=== PATIENT | female | born 1950 | race Caucasian/White ===

== ENCOUNTER → 2019-03-30 08:21 | Outpatient (CLI) | payer MEDICARE, OTHER, SELFPAY ==
--- NOTE | 2019-03-30 | DI.MRI.S_ITS ---
PROCEDURE: MR BRAIN (IAC) WWO CON INDICATIONS: Unspecified sensorineural hearing loss TECHNIQUE: Noncontrast sagittal T1 spin echo, axial FLAIR, axial gradient echo, axial diffusion and ADC through the brain. Axial thin-slice 3D CISS, coronal TruFISP, axial T1 spin echo with fat saturation through the internal auditory canals. After the administration of contrast, thin slice axial and coronal T1 spin echo with fat saturation through the internal auditory canals, and axial T1 spin echo with fat saturation through the brain. COMPARISON: None. FINDINGS: Image quality: Excellent. Cerebellopontine angles: No cerebellopontine angle masses. Inner ear structures appear normally formed. No suspicious enhancement in the internal auditory canal or along the course of the 7th cranial nerve. CSF spaces: Ventricles are normal in size and shape. No extra-axial fluid collections. Basal cisterns are patent. Brain: No intracranial bleeds or mass effects. Flynn-white matter interface is intact. No abnormal intracranial enhancement. Age-appropriate brain parenchymal volume loss and chronic small vessel ischemic change can be seen. Diffusion weighted images demonstrate no acute ischemic insults. Brainstem appears normal. Normal intravascular flow voids are present. Skull and face: Calvarial marrow signal is normal. Orbits appear normal. Sinuses: Sinuses and mastoids are clear. IMPRESSION: No significant abnormality is seen. Specifically, no masses or abnormal enhancement are seen within the cerebellopontine angle cisterns or within the internal auditory canals. Dictated by: Ramses Bailey M.D. on 03/30/2019 at 8:39 Approved by: Ramses Bailey M.D. on 03/30/2019 at 8:40
== END ==
PROVIDERS: Family Provider Family Medicine; PCP Family Medicine; Visit Provider Otolaryngology
DX: H90.5 Unspecified sensorineural hearing loss (principal)
CPT/HCPCS: 70553

== ENCOUNTER → 2020-01-01 11:36 | Outpatient (CLI) | payer MEDICARE, OTHER, SELFPAY ==
--- NOTE | 2020-01-01 | DI.CT.S_ITS ---
PROCEDURE: CT HEAD/BRAIN WO CON INDICATIONS: Unspecified injury of head, initial encounter TECHNIQUE: Noncontrast 4.5 mm thick angled axial sections acquired from the foramen magnum to the vertex, with coronal and sagittal reformats. For radiation dose reduction, the following was used: automated exposure control, adjustment of mA and/or kV according to patient size. COMPARISON: None. FINDINGS: Image quality: Excellent. CSF spaces: Basal cisterns are patent. No extra-axial fluid collections. The ventricles are symmetric in size and shape. Brain: No intracranial bleeds or masses. There is cerebral volume loss for age, with resultant ventricular and sulcal prominence. There are periventricular and deep white matter chronic small vessel ischemic changes. There is intracranial internal carotid artery atherosclerosis. Skull and face: Calvarium and visualized facial bones appear intact, without suspicious lesions. 3 mm soft tissue density projecting at the anterior right frontal scalp projecting at the anterior right frontal scalp on image 22 series 2 is indeterminate recommend direct visual inspection and clinical correlation to exclude early malignant process. This finding is nonspecific. Opacification of posterior ethmoid air cell on the right. IMPRESSION: No acute intracranial process. 3 mm soft tissue nodular density involving the anterior right frontal scalp as above. Recommend direct visual inspection and clinical correlation. Dictated by: Rikki Malloy M.D. on 01/01/2020 at 12:37 Approved by: Rikki Malloy M.D. on 01/01/2020 at 12:41
== END ==
PROVIDERS: Family Provider Family Medicine; PCP Internal Medicine; Referring Provider Internal Medicine; Visit Provider Internal Medicine
DX: S09.90XA Unspecified injury of head, initial encounter (principal); R22.0 Localized swelling, mass and lump, head; I65.29 Occlusion and stenosis of unspecified carotid artery; X58.XXXA Exposure to other specified factors, initial encounter
CPT/HCPCS: 70450

== ENCOUNTER → 2020-01-29 10:11 | Outpatient (CLI) | payer MEDICARE, OTHER, SELFPAY ==
--- NOTE | 2020-01-29 | DI.RAD.S_ITS ---
PROCEDURE: XR CHEST 2V INDICATIONS: CHRONIC COUGH TECHNIQUE: 2 views of the chest were acquired. COMPARISON: [facility], CT, CT ANGIO CHEST PE, 12/29/2017, 23:01. [facility], CR, XR CHEST 1 VIEW, 12/29/2017, 18:23. FINDINGS: Surgical changes and devices: None. Lungs and pleura: Diffuse interstitial prominence predominantly in the bilateral lower lung zones. Subtle patchy opacity adjacent to the left cardiac apex. No focal consolidation. No pleural effusions or pneumothorax. Mediastinum: Mediastinal contours are normal. Heart size is normal. Bones and chest wall: No suspicious bony abnormalities. Soft tissues appear unremarkable. IMPRESSION: Diffuse interstitial prominence most pronounced in the lower lung zones. Subtle patchy opacity of the left lung base adjacent to the cardiac apex. Findings are favored to represent atelectasis. An inflammatory/infectious process not excluded if clinically appropriate. No focal consolidations seen. Dictated by: Sanchez Meier M.D. on 01/29/2020 at 13:58 Approved by: Sanchez Meier M.D. on 01/29/2020 at 14:01
== END ==
PROVIDERS: Family Provider Family Medicine; PCP Internal Medicine; Referring Provider Internal Medicine; Visit Provider Internal Medicine
DX: R05 Cough (principal)
CPT/HCPCS: 71046

== ENCOUNTER → 2020-01-31 10:15 | Outpatient (CLI) | payer MEDICARE, OTHER, SELFPAY ==
[2020-01-31 11:54] LABS: BUN Creatinine Ratio 24.5 (6-22); Blood Urea Nitrogen 13 mg/dL (7-17); Estimated Glomerular Filt Rate > 60.0 mL/min (>60)
== END ==
PROVIDERS: Family Provider Family Medicine; PCP Internal Medicine; Referring Provider Internal Medicine; Visit Provider Internal Medicine
DX: Z79.899 Other long term (current) drug therapy (principal)
CPT/HCPCS: 36415; 82565; 84520

== ENCOUNTER → 2020-02-01 10:03 | Outpatient (CLI) | payer MEDICARE, OTHER, SELFPAY ==
--- NOTE | 2020-02-01 | DI.CT.S_ITS ---
PROCEDURE: CT ANGIO CHEST PE PROTOCOL INDICATIONS: COUGH TECHNIQUE: After the administration of intravenous contrast, 2 mm thick sections acquired from the pulmonary apices to the posterior costophrenic angles. 3-dimensional maximum intensity projection (MIP) coronal and sagittal reformats were then acquired through the thorax. For radiation dose reduction, the following was used: automated exposure control, adjustment of mA and/or kV according to patient size. COMPARISON: [facility], CR, XR CHEST 2V, 01/29/2020, 10:09. FINDINGS: Image quality: Excellent. Pulmonary arteries: Pulmonary arteries are normal in size, and demonstrate no intraluminal filling defects to suggest central pulmonary embolism. Lungs and pleura: Subtle ground-glass opacities at both lung bases, mainly in a dependent fashion. There is also a minor ground-glass density dependently along the left major fissure. No dense or focal consolidations. No pleural effusions or pneumothorax. Central and peripheral airways are patent. Mediastinum: Heart size is enlarged, particularly the ventricles, without pericardial effusion. No mediastinal or hilar adenopathy. Thoracic aorta is normal in caliber and enhancement. Esophagus is normal in caliber, without hiatal hernia. Bones and chest wall: No suspicious bony lesions. Ribs and thoracic spine appear intact throughout. Thyroid gland is normal . No axillary or supraclavicular adenopathy. Abdomen: Visualized upper abdominal solid organs appear normal in the early arterial phase of enhancement. IMPRESSION: 1. Mild dependent ground-glass changes bilaterally are nonspecific. There dependent nature suggests mild pulmonary edema, less likely infection or inflammation. 2. Biventricular cardiomegaly. Dictated by: Michelle Cantor M.D. on 02/01/2020 at 10:45 Approved by: Michelle Cantor M.D. on 02/01/2020 at 10:52
== END ==
PROVIDERS: Family Provider Family Medicine; PCP Internal Medicine; Referring Provider Internal Medicine; Visit Provider Internal Medicine
DX: R05 Cough (principal); I51.7 Cardiomegaly
CPT/HCPCS: 71275; Q9967

== ENCOUNTER 2020-02-11 08:44 | Emergency (ER) | payer MEDICARE, OTHER, SELFPAY ==
[2020-02-11] VITALS (9 sets, daily range): BP systolic 134–175; BP diastolic 64–99; PULSE 58–89; RESP 17; TEMP 37; O2SAT 97–99
--- NOTE | 2020-02-11 08:46 | ED_ITS ---
HPI - Headache General Chief Complaint: Headache Stated Complaint: Severe head pain for 5 days, head injury in August Time Seen by Provider: 02/11/20 08:46 Source: patient and family Mode of arrival: Ambulatory Limitations: no limitations History of Present Illness HPI Narrative: 69-year-old female nonsmoker with history of pulmonary edema presents with her and a chief complaint of severe left temporal pain for the past 5 days. She states her pain has been persistent and denies much in the way of provocation or palliation. She denies any radiation of her discomfort. She has had squiggly lines in her vision off and on for quite some time. She denies any specific history of headaches but has been having discomfort off and on since a left-sided head injury in August. She reports having had a CT scan as an outpatient at least a month ago with no significant findings. Apparently her PCP had discussed with her the potential of ocular migraines. She denies any neck pain or fever, chills, nausea or vomiting. Furthermore, she states that she has had a dry cough for quite some time and during her evaluation with her PCP she was found to have pulmonary edema and was recently started on Lasix. S he is scheduled to have an echocardiogram tomorrow. Complaint: headache Onset (ago): day(s) Onset description: gradual Location: left Severity: severe Quality: aching and throbbing Relieving factors: nothing Exacerbating factors: none Associated symptoms: photophobia and sensitivity to sound Other symptoms: cough Treatments prior to arrival: acetaminophen and ibuprofen Related Data Previous Rx's Medication Instructions Recorded estradiol 1 gram VAG 2XW #42.5 gram 01/10/20 ketorolac 10 mg PO TID #15 tab 02/11/20 prednisone 10 mg PO DAILY #30 tab 02/11/20 Allergies Allergy/AdvReac Type Severity Reaction Status Date / Time Sulfonamide Allergy Unknown Uncoded 02/11/20 09:03 Review of Systems Constitutional Constitutional: Denies chills, Denies fatigue, Denies fever(s), Denies frequent falls, Reports headache(s), Denies lethargy and Denies weakness Eyes Eyes: Reports change in vision, Denies eye discharge, Denies irritation and Denies loss of vision ENT Ears, Nose, Mouth, and Throat: Denies change in voice, Denies dizziness, Reports headache(s), Denies neck pain, Denies sore throat and Denies throat swelling Cardiovascular Cardiovascular: Denies chest pain, Denies irregular heart rhythm, Denies lightheadedness, Denies palpitations, Denies dyspnea, Denies dyspnea on exertion and Denies orthopnea Respiratory Respiratory: Reports cough, Denies dyspnea, Denies dyspnea on exertion and Denies wheezing Gastrointestinal Gastrointestinal: Denies abdominal pain, Denies change in bowel habits, Denies diarrhea, Denies nausea and Denies vomiting Musculoskeletal Musculoskeletal: Denies neck pain and Denies numbness Integumentary/Breasts Skin/Breast: Denies pruritus, Denies erythema, Denies rash and Denies wounds Neurologic Neurologic: Denies behavioral changes, Denies confusion, Denies dizziness, Denies frequent falls, Reports headache(s), Denies loss of vision, Denies numbness and Denies weakness Psychiatric Psychiatric: Denies anxiety, Denies behavioral changes, Denies confusion, Denies depression, Denies homicidal ideation and Denies suicidal ideation Endocrine Endocrine: Denies fatigue, Denies flushing and Denies palpitations Hematologic/Lymphatic Hematologic/Lymphatic: Denies easy bruising Allergic/Immunologic Allergic/Immunologic: Denies urticaria, Denies throat swelling and Denies wheezing Patient History Social History Smoking Status: Never smoker Smoking Status: Never smoker alcohol intake frequency: 0-2 drinks per day Substance Use Type: does not use Exam Narrative Exam Narrative: GENERAL: [69] year old patient appears stated age. Well- nourished, well-developed patient, in mild distress. HEAD: Atraumatic. Normocephalic. Significant tenderness to light palpation of left roman catholic, no obviously palpable temporal artery EYES: Pupils equal round and reactive. Extraocular motions intact. No scleral icterus. No injection or drainage. No hyphema ENT: Nose without bleeding, purulent drainage. Throat without erythema, tonsillar hypertrophy or exudate. Airway patent. NECK: Trachea midline. Non tender CARDIOVASCULAR: Regular rate and rhythm without murmurs, gallops, or rubs. RESPIRATORY: Clear to auscultation. Breath sounds equal bilaterally. No wheezes, rales, or rhonchi. GASTROINTESTINAL: Abdomen soft, non-tender, nondistended. EXTREMITIES: No edema or joint tenderness. BACK: Nontender without deformity or crepitance. No flank tenderness. NEURO: AOx3. SKIN: No rash or erythema of visible areas Initial Vital Signs Initial Vital Signs: Vital Signs Temperature 98.6 F 02/11/20 08:57 Pulse Rate 89 02/11/20 08:57 Respiratory Rate 17 02/11/20 08:57 Blood Pressure 175/99 H 02/11/20 08:57 Pulse Oximetry 99 02/11/20 08:57 Course Course Course Narrative: Patient experiences significant but not complete improvement of headache symptoms. She still does have some tenderness to palpation of the left roman catholic. Giant cell arteritis considered but with lack of inflammatory markers being elevated this is unlikely. Migraine equivalent considered most harlan rodriguez given presentation, response to therapy. Head CT unremarkable. Patient given return precautions and had questions answered to her apparent satisfaction. Orders Ordered: ED Orders 02/11/20 09:15 CT head/brain wo con Stat 02/11/20 09:46 Basic Metabolic Panel Stat C-Reactive Protein Quant Stat Complete Blood Count AUTO DIFF Stat D Dimer Stat Erythrocyte Sedimentation Rate Stat NT-proBNP (BNP-Adult 18+) Stat Procalcitonin Stat Troponin & CK Cardiac Panel Stat Discontinued Medications Dexamethasone (Decadron) 10 mg IV NOW ONE Stop: 02/11/20 09:14 Last Admin: 02/11/20 09:53 Dose: 10 mg Documented by: THAIS Ketorolac Tromethamine (Toradol) 15 mg IV NOW ONE Stop: 02/11/20 09:14 Last Admin: 02/11/20 09:52 Dose: 15 mg Documented by: THAIS Vital Signs Vital signs: Vital Signs - 8 hr 02/11/20 08:57 02/11/20 09:59 02/11/20 10:00 Temperature 98.6 F Pulse Rate 89 72 70 Respiratory Rate 17 Blood Pressure 175/99 H 154/70 H Pulse Oximetry 99 98 99 02/11/20 10:01 02/11/20 10:30 02/11/20 11:00 Temperature Pulse Rate 65 59 L 61 Respiratory Rate Blood Pressure 145/70 H 137/66 Pulse Oximetry 98 99 97 02/11/20 11:01 02/11/20 11:30 02/11/20 12:00 Temperature Pulse Rate 61 58 L 58 L Respiratory Rate Blood Pressure 156/72 H 144/64 H 134/64 Pulse Oximetry 98 98 97 MDM - Headache Lab Data Result diagrams: 02/11/20 09:46 02/11/20 09:46 Labs: Lab Results 02/11/20 02/11/20 02/11/20 Range/Units 09:46 09:46 09:46 WBC 3.9 L (4.5-11.0) X10^3/uL RBC 4.27 (4.0-5.2) X10^6/uL Hgb 13.4 (12.0-16.0) g/dL Hct 39.2 (36-46) % MCV 91.8 (80-100) fL MCH 31.3 (26-34) PG MCHC 34.1 (30-36) % RDW 13.2 (11.6-14.8) % Plt Count 228 (150-400) X10^3/uL Neut % (Auto) 69.7 (50-75) % Lymph % (Auto) 19.9 L (25-40) % Riley % (Auto) 8.8 (3-14) % Eos % (Auto) 1.1 L (2-4) % Baso % (Auto) 0.5 (0-2) % Neut # (Auto) 2700 (1050-8097) /uL Lymph # (Auto) 800 L (6943-6550) /uL Riley # (Auto) 300 (0-900) /uL Eos # (Auto) 0 (0-450) /uL Baso # (Auto) 0 (0-100) /uL ESR 14 (0-20) MM/HR D-Dimer 204 (<230) ng/mL Sodium 134 L (137-145) mmol/L Potassium 4.3 (3.4-5.1) mmol/L Chloride 101 (98-107) mmol/L Carbon Dioxide 27 (22-32) mmol/L BUN 13 (7-17) mg/dL Creatinine 0.55 (0.52-1.04) mg/dL Estimated GFR > 60.0 (>60) mL/min BUN/Creatinine Ratio 23.6 H (6-22) Glucose 104 (80-110) mg/dL Calcium 9.1 (8.4-10.2) mg/dL Total Creatine Kinase 59 (30-135) U/L CK-MB (CK-2) TNP CK-MB (CK-2) Rel Index TNP Troponin I < 0.012 (0.01-0.034) ng/mL C-Reactive Protein < 0.5 (<1.0) mg/dL NT-Pro-B Natriuret Pep 233 H (<125) pg/mL Procalcitonin (<0.5) ng/mL 02/11/20 Range/Units 09:46 WBC (4.5-11.0) X10^3/uL RBC (4.0-5.2) X10^6/uL Hgb (12.0-16.0) g/dL Hct (36-46) % MCV (80-100) fL MCH (26-34) PG MCHC (30-36) % RDW (11.6-14.8) % Plt Count (150-400) X10^3/uL Neut % (Auto) (50-75) % Lymph % (Auto) (25-40) % Riley % (Auto) (3-14) % Eos % (Auto) (2-4) % Baso % (Auto) (0-2) % Neut # (Auto) (4415-1861) /uL Lymph # (Auto) (4821-3622) /uL Riley # (Auto) (0-900) /uL Eos # (Auto) (0-450) /uL Baso # (Auto) (0-100) /uL ESR (0-20) MM/HR D-Dimer (<230) ng/mL Sodium (137-145) mmol/L Potassium (3.4-5.1) mmol/L Chloride (98-107) mmol/L Carbon Dioxide (22-32) mmol/L BUN (7-17) mg/dL Creatinine (0.52-1.04) mg/dL Estimated GFR (>60) mL/min BUN/Creatinine Ratio (6-22) Glucose (80-110) mg/dL Calcium (8.4-10.2) mg/dL Total Creatine Kinase (30-135) U/L CK-MB (CK-2) CK-MB (CK-2) Rel Index Troponin I (0.01-0.034) ng/mL C-Reactive Protein (<1.0) mg/dL NT-Pro-B Natriuret Pep (<125) pg/mL Procalcitonin < 0.05 (<0.5) ng/mL Imaging Data CT scan - head: Radiologist's Impression: [address] [address] [address] Scan Report Signed Patient: Melissa Ivan#: [id number] : 1950Acct:[id number] Age/Sex: 69 / FDate of Service: 02/11/20 Loc: ED Accession Number: [id number] Procedure: CT head/brain wo con Ordering Provider: Alexis Page D.O. PROCEDURE: CT HEAD/BRAIN WO CON INDICATIONS: worst headache, left temporal TECHNIQUE: Noncontrast 4.5 mm thick angled axial sections acquired from the foramen magnum to the vertex, with coronal and sagittal reformats. For radiation dose reduction, the following was used: automated exposure control, adjustment of mA and/or kV according to patient size. COMPARISON: [facility], CT, CT HEAD/BRAIN WO CON, 01/01/2020, 11:49. FINDINGS: Image quality: Excellent. CSF spaces: Basal cisterns are patent. No extra-axial fluid collections. The ventricles are symmetric in size and shape. Brain: No intracranial bleeds or masses. There is cerebral volume loss for age, with resultant ventricular and sulcal prominence. There are mild periventricular and deep white matter chronic small vessel ischemic changes. There is intracranial internal carotid artery atherosclerosis. Skull and face: Calvarium and visualized facial bones appear intact, without suspicious lesions. Sinuses: Visualized sinuses and mastoids are clear. IMPRESSION: 1. Age related volume loss and mild small vessel ischemic change. 2. No evidence acute stroke, hemorrhage, or mass. Dictated by: Magdaleno Zaragoza M.D. on 02/11/2020 at 8:58 Approved by: Magdaleno Zaragoza M.D. on 02/11/2020 at 9:00 Discharge Plan Departure Patient Disposition: Home Clinical Impression: Headache Discharge Date/Time: 02/11/20 12:24 Activity Restrictions/Additional Instructions: *You have been diagnosed with [ left sided headache ] *What to do: *Take medications as directed *Follow up with your primary care provider in 2-3 days, call for an appointment. Let them know you were seen in the Emergency Department and that we ask that you be seen in follow up *Return to ER if you should have any new, worsening or concerning symptoms Prescriptions: New prednisone 10 mg tablet 10 mg PO DAILY Qty: 30 RF: 0 ketorolac 10 mg tablet 10 mg PO TID Qty: 15 RF: 0 No Action estradiol [Estrace] 0.01 % (0.1 mg/gram) cream 1 gram VAG 2XW Qty: 42.5 RF: 2 Referrals: Becki Benjamin ARNP [Primary Care Provider] -
--- NOTE | 2020-02-11 09:15 | DI.CT.S_ITS ---
PROCEDURE: CT HEAD/BRAIN WO CON INDICATIONS: worst headache, left temporal TECHNIQUE: Noncontrast 4.5 mm thick angled axial sections acquired from the foramen magnum to the vertex, with coronal and sagittal reformats. For radiation dose reduction, the following was used: automated exposure control, adjustment of mA and/or kV according to patient size. COMPARISON: [facility], CT, CT HEAD/BRAIN WO CON, 01/01/2020, 11:49. FINDINGS: Image quality: Excellent. CSF spaces: Basal cisterns are patent. No extra-axial fluid collections. The ventricles are symmetric in size and shape. Brain: No intracranial bleeds or masses. There is cerebral volume loss for age, with resultant ventricular and sulcal prominence. There are mild periventricular and deep white matter chronic small vessel ischemic changes. There is intracranial internal carotid artery atherosclerosis. Skull and face: Calvarium and visualized facial bones appear intact, without suspicious lesions. Sinuses: Visualized sinuses and mastoids are clear. IMPRESSION: 1. Age related volume loss and mild small vessel ischemic change. 2. No evidence acute stroke, hemorrhage, or mass. Dictated by: Magdaleno Zaragoza M.D. on 02/11/2020 at 8:58 Approved by: Magdaleno Zaragoza M.D. on 02/11/2020 at 9:00
[2020-02-11] MEDS: KETOROLAC 60 MG/2 ML VIAL 15 MG IV (09:52)
[2020-02-11] MEDS: DEXAMETHASONE 10 MG/ML VIAL IV (09:53)
[2020-02-11 09:57] LABS: Add Manual Diff / Slide Review NO; Basophils Absolute Auto 0 /uL (0-100); Basophils Percent Auto 0.5 % (0-2); Eosinophils Absolute Auto 0 /uL (0-450); Eosinophils Percent Auto 1.1 % (2-4); Hematocrit 39.2 % (36-46); Hemoglobin 13.4 g/dL (12.0-16.0); Lymphocytes Absolute Auto 800 /uL (1100-4500); Lymphocytes Percent Auto 19.9 % (25-40); Mean Corpuscular HGB Conc 34.1 % (30-36); Mean Corpuscular Hemoglobin 31.3 PG (26-34); Mean Corpuscular Volume 91.8 fL (80-100); Monocytes Absolute Auto 300 /uL (0-900); Monocytes Percent Auto 8.8 % (3-14); Neutrophils Absolute Auto 2700 /uL (1500-7000); Neutrophils Percent Auto 69.7 % (50-75); Platelet Count 228 X10^3/uL (150-400); Red Blood Cell Count 4.27 X10^6/uL (4.0-5.2); Red Cell Distribution Width 13.2 % (11.6-14.8); White Blood Cell Count 3.9 X10^3/uL (4.5-11.0)
[2020-02-11 10:07] LABS: D Dimer 204 ng/mL (<230)
[2020-02-11 10:12] LABS: BUN Creatinine Ratio 23.6 (6-22); Blood Urea Nitrogen 13 mg/dL (7-17); Calcium 9.1 mg/dL (8.4-10.2); Carbon Dioxide 27 mmol/L (22-32); Chloride 101 mmol/L (98-107); Creatine Kinase 59 U/L (30-135); Estimated Glomerular Filt Rate > 60.0 mL/min (>60); Glucose 104 mg/dL (80-110); HEMOLYSIS < 15 (0-50); Potassium 4.3 mmol/L (3.4-5.1); Sodium 134 mmol/L (137-145)
[2020-02-11 10:15] LABS: C-Reactive Protein Quant < 0.5 mg/dL (<1.0); Erythrocyte Sedimentation Rate 14 MM/HR (0-20)
[2020-02-11 10:22] LABS: NT-proBNP (BNP-Adult 18+) 233 pg/mL (<125); Troponin I < 0.012 ng/mL (0.01-0.034)
[2020-02-11 10:25] LABS: Procalcitonin < 0.05 ng/mL (<0.5)
== END 2020-02-11 12:24 | disposition home or self-care (01) ==
PROVIDERS: Emergency Provider Emergency Medicine; Family Provider Family Medicine; PCP Internal Medicine
DX: R51 Headache (principal)
CPT/HCPCS: 36415; 70450; 80048; 82550; 83880; 84145; 84484; 85025; 85379; 85651; 86140; 96374; 96375; 99284; J1100; J1885

== ENCOUNTER → 2020-02-12 06:47 | Outpatient (CLI) | payer MEDICARE, OTHER, SELFPAY ==
--- NOTE | 2020-02-12 07:06 | DI.ECHO.S_ITS ---
Echocardiogram Report + + :Name: AMAN MIR Study Date: 02/12/2020 Height: 63 in : :[facility] Weight: 150 lb : : Gender: Female BSA: 1.7 m2 : :: 1950 Age: 69 yrs BP: 123/75 mmHg: :Reason For Study: BIGEMINY : :Ordering Physician: TANIYA, : :DEANNA Performed By: Jess Ivey : :Referring: DEANNA MILLER : + + Interpretation Summary The ejection fraction is estimated to be 60-65%. There is mild mitral regurgitation. The right ventricular systolic pressure is estimated to be at least 24 mmHg based on an estimated right atrial pressure of 3 mm Hg. There is mild tricuspid regurgitation. Compared to the prior echo report on 2018, there is no significant change. Procedure: A two-dimensional transthoracic echocardiogram with color flow and Doppler was performed. The study quality was technically adequate. Comparison is made with the echocardiogram of 12/30/2017. The patient was in sinus rhythm with heart rates between 56-65 bpm during the exam. Left Ventricle: The left ventricle is normal in size and wall thickness. The ejection fraction is estimated to be 60-65%. There are no obvious focal wall motion abnormalities noted but poor endocardial definition reduces the sensitivity for the detection of such. Diastolic parameters suggest probable normal left ventricular diastolic function and normal filling pressures. Right Ventricle: The right ventricle is normal in size and function. Atria: The left atrial size is normal. Right atrial size is normal. There is no Doppler evidence for an interatrial shunt. Mitral Valve: The mitral valve is normal in structure and function. There is mild mitral regurgitation. Aortic Valve: The aortic valve is trileaflet. The aortic valve opens well. There is no aortic valve stenosis. No aortic regurgitation is present. Tricuspid Valve: The tricuspid valve is normal in structure and function. The right ventricular systolic pressure is estimated to be at least 24 mmHg based on an estimated right atrial pressure of 3 mm Hg. There is mild tricuspid regurgitation. Pulmonic Valve: The pulmonic valve leaflets are thin and pliable; valve motion is normal. There is mild pulmonic regurgitation. Great Vessels: The aortic root is normal size. The dimensions of the ascending aorta are normal. The IVC is of normal diameter and collapses greater than 50% with a sniff. This suggests a low right atrial pressure of 3 mm Hg. Pericardium/ Pleura There is no pericardial effusion. There is no pleural effusion. MMode/2D Measurements & Calculations LVIDd: 4.4 cm LVOT diam: 2.0 cm LVIDs: 2.9 cm Ao root diam: 3.0 cm FS: 33.2 % asc Aorta Diam: 2.9 cm EPSS: 0.15 cm IVSd: 0.83 cm LVPWd: 0.67 cm LV griffin. diameter/BSA (cm/m^2): 2.6 LV sys. diameter/BSA (cm/m^2): 1.7 LA A2 area: 17.9 cm2 RA long axis: 4.6 cm LA A4 area: 15.9 cm2 RA area: 13.7 cm2 LA length (vol): 4.9 cm RA vol: 34.8 ml LA vol: 49.2 ml RA : 20.3 ml/m2 LA vol index: 28.7 ml/m2 IVC diam: 1.3 cm RVD1 (basal): 3.7 cm TAPSE: 1.8 cm Doppler Measurements & Calculations Ao V2 max: 128.2 cm/sec LVOT Max Harvey: 80.2 cm/sec Ao V2 mean: 87.9 cm/sec LV V1 max P.6 mmHg Ao max P.6 mmHg LV V1 VTI: 18.7 cm Ao mean P.5 mmHg KARL(I,D): 2.4 cm2 Ao V2 VTI: 24.4 cm KARL(V,D): 2.0 cm2 sev ratio: 0.77 KARL indexed to BSA (cm^2/m^2): 1.4 MV E max harvey: 55.6 cm/sec TR max harvey: 228.8 cm/sec MV A max harvey: 44.4 cm/sec TR max P.0 mmHg MV E/A: 1.3 PA V2 max: 83.7 cm/sec Med Peak E' Harvey: 8.7 cm/sec PA V2 mean: 56.0 cm/sec E/E' med: 6.4 PA mean P.4 mmHg Lat Peak E' Harvey: 12.1 cm/sec PA pr(Accel): 15.6 mmHg E/E' lat: 4.6 E/e' average: 5.5 MV dec time: 0.28 sec SV(LVOT): 58.4 ml Reading Physician:12:19 PM
== END ==
PROVIDERS: Family Provider Family Medicine; PCP Internal Medicine; Referring Provider Internal Medicine; Visit Provider Internal Medicine
DX: I08.1 Rheumatic disorders of both mitral and tricuspid valves (principal); I49.8 Other specified cardiac arrhythmias; R05 Cough
CPT/HCPCS: 93306

== ENCOUNTER → 2020-05-04 13:27 | Outpatient (CLI) | payer MEDICARE, OTHER, SELFPAY ==
[2020-05-04 15:24] LABS: COVID19 -Nasal RAPID Negative (Negative)
== END ==
PROVIDERS: Family Provider Family Medicine; PCP Internal Medicine; Visit Provider Physician Assistant
DX: Z11.59 Encounter for screening for other viral diseases (principal)
CPT/HCPCS: 87635

== ENCOUNTER → 2020-07-23 08:59 | Outpatient (CLI) | payer MEDICARE, OTHER, SELFPAY ==
--- NOTE | 2020-07-23 | DI.RAD.S_ITS ---
PROCEDURE: XR FOOT LT MIN 3V INDICATIONS: Pain in left knee TECHNIQUE: 3 views of the foot were acquired. COMPARISON: [facility], CR, XR FOOT 3 VIEWS WEIGHT BEARING LEFT, 02/04/2018, 8:17. FINDINGS: Bones: No fractures or dislocations. No suspicious bony lesions. Mild scattered IP degenerative narrowing. Soft tissues: No tibiotalar joint effusion. Achilles tendon appears normal. IMPRESSION: Mild scattered IP degenerative narrowing. Dictated by: Debbie Argueta M.D. on 07/23/2020 at 10:24 Approved by: Debbie Argueta M.D. on 07/23/2020 at 10:25
== END ==
PROVIDERS: Family Provider Family Medicine; PCP Internal Medicine; Referring Provider Internal Medicine; Visit Provider Internal Medicine
DX: M79.672 Pain in left foot (principal); M25.562 Pain in left knee
CPT/HCPCS: 73630

== ENCOUNTER → 2020-10-01 11:21 | Outpatient (CLI) | payer MEDICARE, OTHER, SELFPAY ==
--- NOTE | 2020-10-01 11:23 | DI.MG.S_ITS ---
BILATERAL DIGITAL SCREENING MAMMOGRAM 3D/2D WITH CAD: 10/01/2020 CLINICAL: Routine screening. Comparison is made to exams dated: 04/13/2017 mammogram, 04/02/2016 mammogram, and 03/18/2015 mammogram - outside location. There are scattered fibroglandular elements in both breasts. Current study was also evaluated with a Computer Aided Detection (CAD) system. No significant masses, calcifications, or other findings are seen in either breast. There has been no significant interval change. IMPRESSION: NEGATIVE There is no mammographic evidence of malignancy. A 1 year screening mammogram is recommended. This exam was interpreted at Station ID: [id number]. NOTE: For mammograms, a report in lay terms will be sent to the patient. Approximately 15% of breast malignancies will not be visualized mammographically. In the management of a palpable breast mass, a negative mammogram must not discourage biopsy of a clinically suspicious lesion. Electronically Signed By: Sanchez Meier M.D. at/karl:10/01/2020 12:01:38 letter sent: Normal Exam ACR BI-RADS Category 1: Negative 3341F
== END ==
PROVIDERS: Family Provider Family Medicine; PCP Internal Medicine; Referring Provider Internal Medicine; Visit Provider Internal Medicine
DX: Z12.31 Encounter for screening mammogram for malignant neoplasm of breast (principal)
CPT/HCPCS: 77063; 77067

== ENCOUNTER → 2021-03-10 15:18 | Outpatient (CLI) | payer MEDICARE, OTHER, SELFPAY ==
--- NOTE | 2021-03-10 15:23 | DI.RAD.S_ITS ---
PROCEDURE: XR LUMBAR SPINE 2-3V INDICATIONS: LEFT SCIATICA TECHNIQUE: 3 views of the lumbar spine were acquired. COMPARISON: None. FINDINGS: Bones: 5 mbj-dji-dvuidny vertebrae are present. There is normal bony alignment. No vertebral body compression fractures. No suspicious bony lesions. Mild to moderate L5-S1 degenerative disc disease. Mild L1-L2, L2-L3, L3-L4 and L4-L5 degenerative disc disease. Mild L4-L5 and L5-S1 facet arthropathy. Soft tissues: Overlying bowel gas pattern is normal. No suspicious soft tissue calcifications. IMPRESSION: 1. Multilevel degenerative disc disease. 2. Multilevel facet arthropathy. 3. No fracture. No acute osseous lesion. If symptoms and/or clinical suspicion for pathology persists, evaluation with MRI should be considered for further assessment. Dictated by: Makayla Orr MD, PhD on 03/10/2021 at 17:27 Approved by: Makayla Orr MD, PhD on 03/10/2021 at 17:27
== END ==
PROVIDERS: Family Provider Family Medicine; PCP Internal Medicine; Referring Provider Internal Medicine; Visit Provider Internal Medicine
DX: M51.16 Intervertebral disc disorders with radiculopathy, lumbar region (principal); M51.17 Intervertebral disc disorders with radiculopathy, lumbosacral region; M47.26 Other spondylosis with radiculopathy, lumbar region; M47.27 Other spondylosis with radiculopathy, lumbosacral region
CPT/HCPCS: 72100

== ENCOUNTER → 2021-03-13 06:32 | Outpatient (CLI) | payer MEDICARE, OTHER, SELFPAY ==
--- NOTE | 2021-03-13 | DI.MRI.S_ITS ---
PROCEDURE: MR LUMBAR SPINE WO CON INDICATIONS: Sciatica, left side TECHNIQUE: Noncontrast sagittal T1 spin echo and T2 fast echo, sagittal STIR, axial T1 and T2 fast spin echo through the lumbar spine. In cases with scoliosis, additional coronal T2 fast spin echo may be performed. COMPARISON: None. FINDINGS: Image quality: Excellent. Alignment and Curvature: There is normal bony alignment. Bones: Transitional anatomy with left lisa lumbarization of the S1 vertebral body and non-rudimentary S1-S2 disc. No acute vertebral body compression fractures. Spinal Cord: Conus medullaris terminates at the L1 level. Visualized cord demonstrates normal signal and size. Paraspinous Soft Tissues: No paravertebral masses. T12-L1: Normal appearance. L1-L2: Loss of disc signal. Minimal, diffuse disc bulge. No central stenosis. No neural foraminal narrowing. No neural compression. L2-L3: Normal appearance. L3-L4: Loss of disc signal. Mild, diffuse disc bulge. Moderate bilateral facet hypertrophy. Moderate narrowing of the central canal. Mild to moderate bilateral neural foraminal narrowing. No neural compression. L4-L5: Loss of disc signal. Mild, diffuse disc bulge. Usvn-np-tqcuifuc bilateral facet hypertrophy. Mild ligamentum flavum hypertrophy. Mild to moderate narrowing of the central canal. Mild to moderate bilateral neural foraminal narrowing. No neural compression. L5-S1: Loss of disc signal. Mild, diffuse disc bulge. Small central disc protrusion. Mild bilateral facet hypertrophy. Mild narrowing of the central canal. [id number]-ecduoojb right and moderate to severe left neural foraminal narrowing with slight compression of the exiting left L5 nerve root. Fissure noted in the posterior annulus. S1-S2: Normal appearance. IMPRESSION: 1. Transitional anatomy with left lisa lumbarization of the S1 vertebral body and non-rudimentary S1-S2 disc. 2. Multilevel degenerative disc disease. 3. Multilevel facet arthropathy. 4. No severe central canal narrowing. 5. Moderate to severe left L5-S1 neural foraminal narrowing with slight compression of the exiting left L5 nerve root. 6. L5-S1 disc annulus fissure. Dictated by: Makayla Orr MD, PhD on 03/13/2021 at 10:51 Approved by: Makayla Orr MD, PhD on 03/13/2021 at 10:56
== END ==
PROVIDERS: Family Provider Family Medicine; PCP Internal Medicine; Referring Provider Internal Medicine; Visit Provider Internal Medicine
DX: M54.32 Sciatica, left side (principal); M51.37 Other intervertebral disc degeneration, lumbosacral region; M46.96 Unspecified inflammatory spondylopathy, lumbar region; M51.36 Other intervertebral disc degeneration, lumbar region; M48.061 Spinal stenosis, lumbar region without neurogenic claudication; M47.816 Spondylosis without myelopathy or radiculopathy, lumbar region; Q05.7 Lumbar spina bifida without hydrocephalus
CPT/HCPCS: 72148

== ENCOUNTER → 2021-04-11 08:32 | Outpatient (CLI) | payer MEDICARE, OTHER, SELFPAY ==
--- NOTE | 2021-04-11 | DI.MRI.S_ITS ---
PROCEDURE: MR CERVICAL SPINE WO CON INDICATIONS: Radiculopathy, cervical region TECHNIQUE: Noncontrast sagittal T1 spin echo and T2 fast spin echo, sagittal STIR, foraminal oblique sagittal T2 fast spin echo, and axial gradient echo or T2 fast spin echo through the cervical spine. COMPARISON: None. FINDINGS: Image quality: Excellent. Alignment and Curvature: There is normal bony alignment. Bone Marrow: Marrow demonstrates normal overall signal. Minimal reactive signal within the endplates adjacent to the C2-C3, C3-C4, C4-C5, C5-C6, and C6-C7 intervertebral discs. Spinal Cord: Visualized spinal cord has normal size and signal. No cerebellar tonsillar herniation. Paraspinous Soft Tissues: No paravertebral masses. Prevertebral soft tissues are normal in thickness. C2-C3: Mild disc desiccation and diffuse disc bulge. Mild facet and uncovertebral hypertrophy. Mild canal stenosis. Mild bilateral foraminal stenosis. C3-C4: Mild disc desiccation and diffuse disc bulge. Mild facet and uncovertebral hypertrophy bilaterally. Mild canal stenosis. Mild bilateral foraminal stenosis. C4-C5: Mild disc desiccation and diffuse disc bulge. Mild facet and uncovertebral hypertrophy. Mild canal stenosis. Mild bilateral foraminal stenosis. C5-C6: Mild disc desiccation and diffuse disc bulge with superimposed small central protrusion. Mild facet and uncovertebral hypertrophy. Mild canal stenosis. Mild bilateral foraminal stenosis. C6-C7: Mild disc desiccation and diffuse disc bulge. Mild canal stenosis. No foraminal stenosis. C7-T1: Normal appearance. IMPRESSION: Multilevel degenerative disc and facet disease, causing mild canal and foraminal stenosis as described above. No neural impingement. Dictated by: Karuna Willis M.D. on 04/11/2021 at 11:18 Approved by: Karuna Willis M.D. on 04/11/2021 at 11:21
== END ==
PROVIDERS: Family Provider Family Medicine; PCP Internal Medicine; Referring Provider Personal Emergency Response Attendant; Visit Provider Personal Emergency Response Attendant
DX: M47.22 Other spondylosis with radiculopathy, cervical region (principal); M50.11 Cervical disc disorder with radiculopathy, high cervical region; M48.02 Spinal stenosis, cervical region
CPT/HCPCS: 72141

== ENCOUNTER 2021-07-01 15:06 | Emergency (ER) | payer MEDICARE, OTHER, SELFPAY ==
[2021-07-01 15:08] VITALS: BP 172/79; PULSE 86; RESP 20; TEMP 37.2; O2SAT 98
--- NOTE | 2021-07-01 15:12 | DI.RAD.S_ITS ---
PROCEDURE: XR CHEST 1V INDICATIONS: Shortness of breath TECHNIQUE: One view of the chest was acquired. COMPARISON: None. FINDINGS: Surgical changes and devices: None. Lungs and pleura: Lungs are clear. No pleural effusions or pneumothorax. Mediastinum: Mediastinal contours appear normal. Heart size is normal. Bones and chest wall: No suspicious bony lesions. Overlying soft tissues appear unremarkable. IMPRESSION: No acute cardiopulmonary process demonstrated radiographically. Dictated by: James Jean M.D. on 07/01/2021 at 15:50 Approved by: James Jean M.D. on 07/01/2021 at 15:50
--- NOTE | 2021-07-01 16:13 | ED.GENADULT ---
HPI - General Adult General Chief complaint: Shortness of Breath/Dyspnea Stated complaint: Covid Systems Dr christy Time Seen by Provider: 07/01/21 15:25 Source: patient Mode of arrival: Ambulatory History of Present Illness HPI narrative: Patient is a 71-year-old female. Fully vaccinated against COVID. Has had symptoms for the past 5 days to include shortness of breath and headache and a cough. No chest pain. Tested positive for COVID 4 days ago. Patient's had similar symptoms prior to her. Her symptoms have continued she contacted her primary doctor who sent her to the emergency department to make sure that it was not pneumonia. She has had history bronchitis frequently. Related Data Home Medications Medication Instructions Recorded Confirmed omega-3 fatty acids 1,000 mg 1,000 mg PO DAILY 03/01/20 02/11/21 capsule (Fish Oil Concentrate) acetaminophen 650 mg 1,300 mg PO BEDTIME tab 02/11/21 02/11/21 tablet,extended release (Tylenol 8 Hour) cetirizine 10 mg tablet (All Day 10 mg PO DAILY tab 02/11/21 02/11/21 Allergy (cetirizine)) cholecalciferol (vitamin D3) 1,250 1,250 mcg PO DAILY cap 02/11/21 02/11/21 mcg (50,000 unit) capsule fluticasone propionate 50 1 spray NASAL BID g 02/11/21 02/11/21 mcg/actuation nasal spray,suspension gabapentin 300 mg capsule 600 - 900 mg PO BID cap 02/11/21 02/11/21 lysine 1 tab PO DAILY PRN 02/11/21 02/11/21 melatonin 10 mg capsule 10 mg PO BEDTIME 02/11/21 02/11/21 omeprazole PO BID 02/11/21 02/11/21 oxcarbazepine 300 mg tablet 300 - 600 mg PO BID tab 02/11/21 02/11/21 (Trileptal) Previous Rx's Medication Instructions Recorded estradiol (Estrace) 1 g VAG 2XW #42.5 gram 02/04/21 Allergies Allergy/AdvReac Type Severity Reaction Status Date / Time Sulfonamide Allergy Unknown Uncoded 02/11/21 08:15 Review of Systems Constitutional Constitutional: Reports chills, Reports fever(s) and Reports headache(s) ENT Ears, Nose, Mouth, and Throat: Reports headache(s) Cardiovascular Cardiovascular: Denies chest pain Respiratory Respiratory: Reports as per HPI and Reports system reviewed and no additional complaints, except as documented Gastrointestinal Gastrointestinal: Reports system reviewed and no additional complaints, except as documented Musculoskeletal Musculoskeletal: Reports system reviewed and no additional complaints, except as documented Integumentary/Breasts Skin/Breast: Reports system reviewed and no additional complaints, except as documented Neurologic Neurologic: Reports system reviewed and no additional complaints, except as documented and Reports headache(s) Hematologic/Lymphatic On Anticoagulants: No Patient History Medical History Arthritis Asthma Postmenopausal atrophic vaginitis Postmenopausal atrophic vaginitis Surgical History Hx of appendectomy Social History Smoking Status: Never smoker Smoking Status: Never smoker alcohol intake frequency: 0-2 drinks per day Substance Use Type: does not use Exam Initial Vital Signs Initial Vital Signs: Vital Signs Temperature 98.9 F 07/01/21 15:08 Pulse Rate 86 07/01/21 15:08 Respiratory Rate 20 07/01/21 15:08 Blood Pressure 172/79 H 07/01/21 15:08 Pulse Oximetry 98 07/01/21 15:08 HENMT Head: normal to inspection Resp Effort & Inspection: normal respiratory effort Auscultation: clear to auscultation bilaterally Cardio Rate: regular rate Rhythm: regular rhythm Skin General: no rashes or lesions noted Neuro General: patient alert, patient awake and moves all extremities Extrem General: normal to inspection and capillary refill normal Psych Appearance: grossly normal and well kempt Course Orders Ordered: ED Orders 07/01/21 15:12 XR chest 1V Stat Complete Blood Count AUTO DIFF Stat Comprehensive Metabolic Panel Stat Lactate (Lactic Acid) Stat EKG-12 Lead Stat Measure peak expiratory flow ONCE RT Consult Eval and Treat Now Vital Signs Vital signs: Vital Signs - 8 hr 07/01/21 15:08 Temperature 98.9 F Pulse Rate 86 Respiratory Rate 20 Blood Pressure 172/79 H Pulse Oximetry 98 Medical Decision Making Imaging Data Chest x-ray: Radiologist's Impression: [address] [address] XRay Report Signed Patient: Melissa Ivan MR#: [id number] : 1950 Acct:[id number] Age/Sex: 71 / F Date of Service: 07/01/21 Loc: ED Accession Number: [id number] ?? Procedure: XR chest 1V Ordering Provider: Casey Duarte D.O. PROCEDURE:? XR CHEST 1V ? INDICATIONS:? Shortness of breath ? TECHNIQUE:? One view of the chest was acquired.? ? COMPARISON:? None. ? FINDINGS:? ? Surgical changes and devices:? None.? ? Lungs and pleura:? Lungs are clear.? No pleural effusions or pneumothorax.? ? Mediastinum:? Mediastinal contours appear normal.? Heart size is normal.? ? Bones and chest wall:? No suspicious bony lesions.? Overlying soft tissues appear unremarkable.? ? IMPRESSION:? No acute cardiopulmonary process demonstrated radiographically. ? ? Dictated by: James Jean M.D. on 07/01/2021 at 15:50 ? ? Approved by: James Jean M.D. on 07/01/2021 at 15:50 ECG Data Attestation: I personally reviewed and interpreted this ECG as follows: Interpretation: Sinus rhythm Ventricular rate is 73 Occasional PVC Normal QRS Incomplete right bundle branch block Normal axis MDM Narrative Medical decision making narrative: Patient is COVID positive. Chest x-ray shows no signs of pneumonia. She is not hypoxic. Clear lungs. No indication for antibiotics. No indication for oxygen. No indication for admission in the hospital. I did discuss this with her. We did discuss current CDC guidelines with regard to COVID. She is given return precautions. She expressed understanding and agreement. Discharge Plan Departure Patient Disposition: Home Clinical Impression: COVID-19 Instructions: DI for COVID-19 (Suspected or Confirmed ) Activity Restrictions/Additional Instructions: Please follow-up all current CDC guidelines with regard to quarantine. You can continue to take Tylenol for headaches or fevers or body aches. Contact your primary doctor for follow-up. Return to the emergency department for any new or worsening symptoms. Prescriptions: No Action omega-3 fatty acids [Fish Oil Concentrate] 1,000 mg capsule 1,000 mg PO DAILY 0RF gabapentin 300 mg capsule 600 - 900 mg PO BID 0RF Label Comments: 2 capsules in am and 3 at night oxcarbazepine [Trileptal] 300 mg tablet 300 - 600 mg PO BID 0RF Label Comments: 1 tablet in am and 2 tablets at night cholecalciferol (vitamin D3) 1,250 mcg (50,000 unit) capsule 1,250 mcg PO DAILY 0RF estradiol [Estrace] 0.01 % (0.1 mg/gram) cream 1 g VAG 2XW Qty: 42.5 12RF Rx Instructions: Please provide patient with compounded Estriol 0.1% acetaminophen [Tylenol 8 Hour] 650 mg tablet extended release 1,300 mg PO BEDTIME 0RF cetirizine [All Day Allergy (cetirizine)] 10 mg tablet 10 mg PO DAILY 0RF fluticasone propionate 50 mcg/actuation spray,suspension 1 spray NASAL BID 0RF Rx Instructions: administer into each nostril melatonin 10 mg capsule 10 mg PO BEDTIME 0RF omeprazole PO BID 0RF lysine 1 tab PO DAILY PRN0RF Referrals: Becki Benjamin ARNP [Primary Care Provider] -
== END 2021-07-01 16:33 | disposition home or self-care (01) ==
PROVIDERS: Emergency Provider Emergency Medicine; Family Provider Family Medicine; PCP Internal Medicine
DX: U07.1 COVID-19 (principal); I49.3 Ventricular premature depolarization
CPT/HCPCS: 71045; 93005; 99282; 99283

== ENCOUNTER → 2021-08-06 15:13 | Outpatient (CLI) | payer MEDICARE, OTHER, SELFPAY ==
--- NOTE | 2021-08-06 15:16 | DI.RAD.S_ITS ---
PROCEDURE: XR HAND LT MIN 3V INDICATIONS: LT FINGER SWELLING TECHNIQUE: 3 views of the hand(s) acquired. COMPARISON: None. FINDINGS: Bones: There is an ossification adjacent to the 3rd PIP joint with adjacent soft tissue edema. Carpal bones are normally aligned. No suspicious bony lesions. Soft tissues: No suspicious soft tissue calcifications. IMPRESSION: Calcification adjacent to the 3rd PIP joint most suggestive of avulsion injury. Short interval imaging follow-up in 7-10 days is recommended. Dictated by: Debbie Argueta M.D. on 08/06/2021 at 21:53 Approved by: Debbie Argueta M.D. on 08/06/2021 at 21:54
== END ==
PROVIDERS: Family Provider Family Medicine; PCP Internal Medicine; Referring Provider Internal Medicine; Visit Provider Internal Medicine
DX: M79.89 Other specified soft tissue disorders (principal)
CPT/HCPCS: 73130

== ENCOUNTER → 2021-09-18 09:32 | Outpatient (CLI) | payer MEDICARE, OTHER, SELFPAY ==
--- NOTE | 2021-09-18 | DI.MRI.S_ITS ---
PROCEDURE: MR HAND LT WO CON INDICATIONS: LEFT HAND MIDDLE FINGER SWELLING TECHNIQUE: Noncontrast coronal T1 spin echo and T2 fast spin echo with fat saturation, axial proton density fast spin echo and T2 fast spin echo with fat saturation, sagittal T1 spin echo and STIR through the hand and fingers. COMPARISON: [facility], CR, XR HAND LT MIN 3V, 08/06/2021, 16:23. FINDINGS: Image quality: Excellent. Bones: The bones are normally aligned, without marrow contusions or fractures. No intra-osseous lesions. Scattered degenerative changes are seen in the fingers. Moderate degenerative changes at the 1st carpometacarpal joint. Soft tissues: Soft tissue edema is seen at the dorsal ulnar aspect of the middle finger overlying the proximal interphalangeal joint in the region of the calcification seen on radiographs from 08/06/2021. However, the previously seen calcification is not definitely redemonstrated on MRI. The edema is located between the central tendinous slip and lateral band of the extensor tendon without definite disruption of tendon fibers. The insertion of the central tendinous band onto the middle phalangeal base is intact. No lateral band tearing is seen and the distal insertions onto the distal phalanx are intact. The collateral ligaments are intact. This may represent focal capsular disruption or a small ganglion cyst. A lobular cyst is seen within the thenar musculature measuring approximately 1.9 x 0.9 x 0.8 cm. A lobular fluid-filled tract is seen extending proximally to the level of the middle carpal row deep to the carpal tunnel. The remaining visualized flexor and extensor tendons are grossly intact. Visualized muscles demonstrate normal bulk and internal signal. IMPRESSION: 1. Focal soft tissue edema at the dorsal ulnar aspect of the 3rd proximal interphalangeal joint may represent focal disruption of the joint capsule or a small ganglion cyst. The calcifications seen on radiographs is not definitely redemonstrated by MRI. 2. Extensor tendon at the 3rd finger is intact of the level of the proximal and distal interphalangeal joints. Third proximal interphalangeal joint collateral ligaments are intact. 3. Lobular ganglion cyst in the interspace between the 1st and 2nd metacarpals along the thenar musculature, which appears to track back to the midcarpal joint. Dictated by: Samuel Ortega M.D. on 09/18/2021 at 13:46 Approved by: Samuel Ortega M.D. on 09/18/2021 at 14:04
== END ==
PROVIDERS: Family Provider Family Medicine; PCP Internal Medicine; Referring Provider Orthopaedic Surgery; Visit Provider Orthopaedic Surgery
DX: M25.442 Effusion, left hand (principal); M67.442 Ganglion, left hand
CPT/HCPCS: 73218

== ENCOUNTER → 2021-10-30 15:04 | Outpatient (CLI) | payer MEDICARE, OTHER, SELFPAY ==
--- NOTE | 2021-10-30 | DI.MG.S_ITS ---
BILATERAL DIGITAL SCREENING MAMMOGRAM 3D/2D WITH CAD: 10/30/2021 CLINICAL: Routine screening. Comparison is made to exams dated: 10/01/2020 mammogram - [facility], 04/13/2017 mammogram, and 04/02/2016 mammogram - outside location. There are scattered fibroglandular elements in both breasts. Current study was also evaluated with a Computer Aided Detection (CAD) system. No significant masses, calcifications, or other findings are seen in either breast. There has been no significant interval change. IMPRESSION: NEGATIVE There is no mammographic evidence of malignancy. A 1 year screening mammogram is recommended. This exam was interpreted at Station ID: [id number]. NOTE: For mammograms, a report in lay terms will be sent to the patient. Approximately 15% of breast malignancies will not be visualized mammographically. In the management of a palpable breast mass, a negative mammogram must not discourage biopsy of a clinically suspicious lesion. Electronically Signed By: Michelle de luna/karl:10/31/2021 09:01:30 letter sent: Normal Exam ACR BI-RADS Category 1: Negative 3341F
== END ==
PROVIDERS: Family Provider Family Medicine; PCP Internal Medicine; Referring Provider Internal Medicine; Visit Provider Internal Medicine
DX: Z12.31 Encounter for screening mammogram for malignant neoplasm of breast (principal)
CPT/HCPCS: 77063; 77067

== ENCOUNTER → 2022-08-14 09:44 | Outpatient (CLI) | payer MEDICARE, SELFPAY ==
--- NOTE | 2022-08-14 09:48 | DI.RAD.S_ITS ---
Bone Density Report Name: AMAN MIR Age: 72 Sex: Female Ethnicity: White Date of : 1950 Indication: osteopenia; Referring Provider: DEANNA MILLER Study: Bone densitometry was performed. Exam Date: August 14, 2022 Accession number: [id number] Bone Density: Region BMD T-score Z-score Classification AP Spine(L1-L4) 0.864 -1.7 0.6 Osteopenia Femoral Neck (Left) 0.563 -2.6 -0.6 Osteoporosis Total Hip (Left) 0.784 -1.3 0.4 Osteopenia Femoral Neck (Right) 0.603 -2.2 -0.2 Osteopenia Total Hip (Right) 0.803 -1.1 0.5 Osteopenia Total Hip Mean 0.793 -1.2 0.5 Osteopenia World Health Organization criteria for BMD impression classify patients as: Normal (T-score at or above -1.0), Osteopenia (T-score between -1.0 and -2.5), or Osteoporosis (T-score at or below -2.5). 10-year Fracture Risk: FRAX not reported because: Some T-score for Spine Total or Hip Total or Femoral Neck at or below -2.5 Previous Exams: -- Region Exam Age BMD T-score BMD Change BMD Change Date g/cm2 vs Baseline vs Previous -- AP Spine (L1-L4) 08/14/2022 72 0.864 -1.7 -0.111 (-11.3%)# -0.111 (-11.3%)# 10/21/2015 65 0.975 -0.7 Total Hip(Left) 08/14/2022 72 0.784 -1.3 0.011 (1.5%)# 0.011 (1.5%)# 10/21/2015 65 0.773 -1.4 Total Hip(Right) 08/14/2022 72 0.803 -1.1 -0.041 (-4.9%)# -0.041 (-4.9%)# 10/21/2015 65 0.844 -0.8 -- *Denotes significance at 95% confidence level, LSC for AP Spine = 0.022 g/cm2, LSC for Total Hip = 0.027 g/cm2 # Denotes dissimilar scan types or analysis methods Impression: The patient has osteoporosis, based on the Left Femoral Neck T-score. No significant bone loss was observed. Discussion: INCREASED RISK OF FRACTURE. BONE DENSITY IS UNDESIRABLY LOW AT ONE OR MORE SKELETAL SITES, CONSISTENT WITH POSTMENOPAUSAL OSTEOPOROSIS. This patient's lowest T-score meets the World Health Organization's (WHO) criteria for osteoporosis at one or more sites (T-score -2.5 or below). In untreated patients, the risk of osteoporotic fracture increases approximately two-fold for each 1.0 SD decrease in T-score. Low bone density is not the only risk factor for fracture; also consider factors such as patient's age, frailty or poor health, risk of falling, risk of injury, previous osteoporotic fracture, family history of osteoporosis, cigarette smoking, low body weight, etc. Not everyone with low bone mineral density has osteoporosis; osteomalacia and other metabolic bone disorders should also be considered. Patients who have osteoporosis should be evaluated for specific diseases and conditions (secondary causes) that may cause or contribute to bone loss. The [place] [employer]ocrinologists (AACE) and National Osteoporosis Foundation (NOF) recommend pharmacologic intervention for all postmenopausal women whose T-score is in this range. The patient should follow a healthful lifestyle (good nutrition with adequate calcium and vitamin D, and appropriate weight-bearing exercise). Follow-Up: Consider a repeat BMD and Vertebral Fracture Assessment (VFA) exam in 2 years or sooner if medically necessary, to reassess this patient's status. Reported by: GENARO VUONG M.D. on 08/14/2022 10:04:00 AM.
== END ==
PROVIDERS: Family Provider Family Medicine; PCP Internal Medicine; Referring Provider Internal Medicine; Visit Provider Internal Medicine
DX: Z78.0 Asymptomatic menopausal state (principal); Z13.820 Encounter for screening for osteoporosis; M81.0 Age-related osteoporosis without current pathological fracture; Z90.710 Acquired absence of both cervix and uterus
CPT/HCPCS: 77080

== ENCOUNTER → 2022-08-19 15:47 | Outpatient (CLI) | payer MEDICARE, SELFPAY ==
--- NOTE | 2022-08-19 | DI.RAD.S_ITS ---
PROCEDURE: XR CERVICAL SPINE 2V OR 3V INDICATIONS: neck pain TECHNIQUE: 3 view(s) of the cervical spine were acquired. COMPARISON: MR, MR CERVICAL SPINE WO CON, 04/11/2021, 8:41. FINDINGS: Bones: No fractures or dislocations to the T1 level. The lateral masses of C1 appear intact on the odontoid view. Mild degenerative change in the cervical spine. Small vertebral body osteophytes. Uncovertebral joint hypertrophy. No suspicious bony lesions. Soft tissues: No prevertebral soft tissue swelling. IMPRESSION: Mild degenerative change in the cervical spine appreciated. Dictated by: Tom Braxton M.D. on 08/19/2022 at 17:15 Approved by: Tom Braxton M.D. on 08/19/2022 at 17:21
== END ==
PROVIDERS: Family Provider Family Medicine; PCP Internal Medicine; Referring Provider Internal Medicine; Visit Provider Internal Medicine
DX: M54.2 Cervicalgia (principal); M47.812 Spondylosis without myelopathy or radiculopathy, cervical region
CPT/HCPCS: 72040

== ENCOUNTER → 2022-11-09 14:20 | Outpatient (CLI) | payer MEDICARE, SELFPAY ==
--- NOTE | 2022-11-09 | DI.MG.S_ITS ---
BILATERAL DIGITAL SCREENING MAMMOGRAM 3D/2D WITH CAD: 11/09/2022 CLINICAL: Routine screening. Comparison is made to exams dated: 10/30/2021 mammogram, 10/01/2020 mammogram - [facility], and 04/13/2017 mammogram - outside location. Both breasts are heterogeneously dense, which may obscure small masses (category c / 51-75% glandular tissue). Current study was also evaluated with a Computer Aided Detection (CAD) system. No significant masses, calcifications, or other findings are seen in either breast. There has been no significant interval change. IMPRESSION: NEGATIVE There is no mammographic evidence of malignancy. A 1 year screening mammogram is recommended. Based on the Tyrer Cuzick model (a risk assessment model) the patient's lifetime risk is 3.7% and her 10 year risk is 3.0%. According to the ACR, ACS, and NCCN guidelines, an annual breast MRI exam along with mammogram is recommended if the patient's lifetime risk is 20% or greater. This exam was interpreted at Station ID: [id number]. NOTE: For mammograms, a report in lay terms will be sent to the patient. Approximately 15% of breast malignancies will not be visualized mammographically. In the management of a palpable breast mass, a negative mammogram must not discourage biopsy of a clinically suspicious lesion. Electronically Signed By: Tejas bowie/karl:11/09/2022 15:27:17 letter sent: Normal Exam ACR BI-RADS Category 1: Negative 3341F
== END ==
PROVIDERS: Family Provider Family Medicine; PCP Internal Medicine; Referring Provider Internal Medicine; Visit Provider Internal Medicine
DX: Z12.31 Encounter for screening mammogram for malignant neoplasm of breast (principal)
CPT/HCPCS: 77063; 77067

== ENCOUNTER 2022-12-11 07:19 | Day surgery (SDC) | payer MEDICARE, SELFPAY ==
--- NOTE | 2022-12-11 | PATH_ITS ---
[facility] Accession Number: [id number] No. of containers..01 Tissue . 01 Material submitted: . colon - DESCENDING POLYP . 01 Diagnosis: Descending Colon Polyp: Colonic mucosa with focal mucosal hyperplasia. Negative for dysplasia or malignancy. Additional step sections examined. V 12/18/2022 1726 Local . 01 Electronically signed: . Chilango Mojica MD, PhD, Pathologist NPI- [id number] . 01 Gross description: . DESCENDING POLYP: Received in formalin is 1 fragment(s) of echevarria, soft tissue measuring 0.4 x 0.4 x 0.3 cm submitted entirely in 1 cassette(s) /[facility] 12/16/2022 1359 Local . 01 Pathologist provided ICD-10: K63.5 . 01 CPT . 134636 Specimen Comment: A courtesy copy of this report has been sent to [facility] Pathology Performed at: 01 [facility] [address] [place] [address], [place], [place] [id number] MD Kaleb Crespo MD Phone: [phone]
[2022-12-11] MEDS: LACTATED RINGERS 1,000 ML 42 ML IV (07:32)
[2022-12-11 07:43] VITALS: BP 104/61; PULSE 76; RESP 16; TEMP 36.8; O2SAT 99; BMI 28.3
--- NOTE | 2022-12-11 08:39 | PM.HP.1 ---
History of Present Illness History of Present Illness Date Patient Seen: 12/11/22 Time Patient Seen: 08:39 Chief complaint: [facility] [place] [facility] Narrative: 72 yo F presenting today for a screening colonoscopy. Her last colonoscopy was about 8 years ago they did find polyps it was done at [facility] in [place]. She has a family history of colon cancer in her mother from advanced colon cancer at the age of 65. She has been doing Cologuard tests and never had a positive result with that. She does have hemorrhoids and has had bleeding in the past but recently she is had no bleeding or other concerning symptoms. She does endorse a struggle with constipation she takes Metamucil daily especially in the winter and on occasion will take MiraLax if she is feeling constipated. Because of her history of fibromyalgia she is careful with her diet and takes an anti-inflammatory diet and does try to eat healthy foods and a lot of fiber in her diet. [facility] Medical History Arthritis Asthma Postmenopausal atrophic vaginitis Postmenopausal atrophic vaginitis Surgical History Hx of appendectomy Social History household members: spouse Smoking Status: Never smoker alcohol intake: current Meds Home Medications and Allergies Home Medications Medication Instructions Recorded Confirmed Type omega-3 fatty acids 1,000 mg 1,000 mg PO DAILY 03/01/20 12/11/22 History capsule (Fish Oil Concentrate) estradiol 0.01% (0.1 mg/gram) 1 g vaginal 2XW #42.5 grams 02/04/21 12/11/22 Rx vaginal cream (Estrace) acetaminophen 650 mg 1,300 mg PO BEDTIME 02/11/21 12/11/22 History tablet,extended release (Tylenol 8 Hour) cetirizine 10 mg tablet (All Day 10 mg PO DAILY 02/11/21 12/11/22 History Allergy (cetirizine)) cholecalciferol (vitamin D3) 1,250 1,250 mcg PO DAILY 02/11/21 12/11/22 History mcg (50,000 unit) capsule fluticasone propionate 50 1 spray intranasal BID 02/11/21 12/11/22 History mcg/actuation nasal spray,suspension gabapentin 300 mg capsule 600 - 900 mg PO BID 02/11/21 12/11/22 History melatonin 10 mg capsule 10 mg PO BEDTIME 02/11/21 12/11/22 History omeprazole PO BID 02/11/21 02/11/21 History oxcarbazepine 300 mg tablet 300 - 600 mg PO BID 02/11/21 12/11/22 History (Trileptal) methocarbamol 750 mg tablet 750 mg PO DAILY 12/11/22 12/11/22 History omeprazole 20 mg capsule,delayed 20 mg PO DAILY 12/11/22 12/11/22 History release rosuvastatin 10 mg tablet 10 mg PO DAILY 12/11/22 12/11/22 History Allergies Allergy/AdvReac Type Severity Reaction Status Date / Time Sulfonamide Allergy Mild Nausea Uncoded 12/11/22 07:35 Exam Vital Signs (past 8 hours): - 12/11/22 07:43 Temperature 98.2 F Pulse Rate 76 Respiratory Rate 16 Blood Pressure 104/61 Pulse Oximetry 99 Oxygen Delivery Method Room Air Oxygen Delivery Method Room Air Const General: cooperative, healthy appearing and comfortable Nutritional Appearance: average body habitus, well nourished and thin HENMT Head: normal to inspection Eyes General: appearance normal, both eyes and all related structures Resp Effort & Inspection: normal respiratory effort and able to speak in complete sentences GI Palpation: soft and No tender Assessment & Plan Assessment and plan (1) Family history of colon cancer in mother: Status: Acute (2) History of colon polyps: Status: Acute (3) Colon cancer screening: Status: Acute Assessment & Plan narrative: Presents today for screening colonoscopy I discussed the risks benefits and alternatives including but not limited to perforation of the colon and an incomplete exam she fully understands these risks and would like to proceed.
--- NOTE | 2022-12-11 09:29 | PM.OP.COLON ---
Operative Date/Time/Diagnoses Date of procedure: 12/11/22 Time of procedure: 09:29 Pre-op diagnosis: Family history of cancer in mother who age 65, personal history of polyps. Procedure & Clinicians Study performed: Colonoscopy and biopsy Same procedure as scheduled: Yes Indications: Colon cancer screening, family history of colon cancer in mother who age 65 Surgeon: Niurka Patel Procedure Notes Procedure in detail: Patient was taken to the endoscopy suite and placed in a left lateral decubitus position. A time-out was performed. With the help of anesthesiologist conscious sedation was induced and monitored throughout the case. A digital rectal exam was performed and there were no masses or strictures. The colonoscope was introduced into the anal canal and advanced through to the cecum. A photograph of the appendiceal orifice was obtained. The bowel prep was good [place] bowel prep score of 2. The scope was then withdrawn for a total of 20 minutes and 1 small descending colon polyp was seen and removed completely with biopsy forceps. The scope was then retroflexed and a photograph of the internal hemorrhoidal piles was obtained. There were a few small scattered diverticula in the sigmoid. Findings: divertiulosis and polyp(s) (One small descending colon polyp) Post-procedure Recommendations: Colonoscopy in 5 years Plan for aftercare: Five year follow-up because of family history of colon cancer. You will receive a letter with your pathology results.
[2022-12-11 09:34] VITALS: BP 86/54; PULSE 63; RESP 12; TEMP 36.1; O2SAT 98
[2022-12-11 09:39] VITALS: BP 89/55; PULSE 85; RESP 12; O2SAT 99
[2022-12-11 09:44] VITALS: BP 118/72; PULSE 71; RESP 16; O2SAT 98
[2022-12-11 09:50] VITALS: BP 116/73; PULSE 58; RESP 14; O2SAT 100
[2022-12-11 10:39] VITALS: BP 127/77; PULSE 78; RESP 16; TEMP 36.2; O2SAT 98
== END 2022-12-11 10:41 | disposition home or self-care (01) ==
PROVIDERS: Family Provider Family Medicine; PCP Internal Medicine; Referring Provider Surgery; Visit Provider Surgery
PROC: 0DJD8ZZ Inspection of Lower Intestinal Tract, Via Natural or Artificial Opening Endoscopic (ICD-10-PCS; CPT 45378; principal; 2022-12-11 08:30)
DX: K63.5 Polyp of colon (principal); Z12.11 Encounter for screening for malignant neoplasm of colon; Z86.010 Personal history of colon polyps; Z80.0 Family history of malignant neoplasm of digestive organs
CPT/HCPCS: 45380; J2250; J3010

== ENCOUNTER → 2023-04-06 12:18 | Outpatient (ROUT) | payer MEDICARE, SELFPAY ==
[2023-04-06 13:08] LABS: Influenza A - CEPHEID Flu A NEGATIVE (NEGATIVE); Influenza B - CEPHEID Flu B NEGATIVE (NEGATIVE); Respiratory Syncytial Virus Negative (Negative)
[2023-04-06 13:13] LABS: COVID-19 CEPHEID 4-PLEX PCR Negative (Negative)
== END ==
PROVIDERS: Family Provider Family Medicine; PCP Internal Medicine; Visit Provider Internal Medicine
DX: J02.9 Acute pharyngitis, unspecified (principal); R05.9 Cough, unspecified; R09.81 Nasal congestion
CPT/HCPCS: 0241U

== ENCOUNTER → 2023-11-24 07:45 | Outpatient (CLI) | payer MEDICARE, OTHER, SELFPAY ==
--- NOTE | 2023-11-24 07:47 | DI.MG.S_ITS ---
BILATERAL DIGITAL SCREENING MAMMOGRAM 3D/2D WITH CAD: 11/24/2023 CLINICAL: Routine screening. Comparison is made to exams dated: 11/09/2022 mammogram, 10/30/2021 mammogram, and 10/01/2020 mammogram - . Both breasts are heterogeneously dense, which may obscure small masses (category c / 51-75% glandular tissue). Current study was also evaluated with a Computer Aided Detection (CAD) system. No significant masses, calcifications, or other findings are seen in either breast. There has been no significant interval change. IMPRESSION: NEGATIVE There is no mammographic evidence of malignancy. A 1 year screening mammogram is recommended. Based on the Tyrer Cuzick model (a risk assessment model) the patient's lifetime risk is 3.4% and her 10 year risk is 3.1%. According to the ACR, ACS, and NCCN guidelines, an annual breast MRI exam along with mammogram is recommended if the patient's lifetime risk is 20% or greater. This exam was interpreted at Station ID: [id number]. NOTE: For mammograms, a report in lay terms will be sent to the patient. Approximately 15% of breast malignancies will not be visualized mammographically. In the management of a palpable breast mass, a negative mammogram must not discourage biopsy of a clinically suspicious lesion. Electronically Signed By: Tejas bowie/karl:11/24/2023 08:36:06 letter sent: Normal Exam ACR BI-RADS Category 1: Negative [id number]
== END ==
LOC: MAMMO 07:46
PROVIDERS: Family Provider Family Medicine; PCP Internal Medicine; Referring Provider Internal Medicine; Visit Provider Internal Medicine
DX: Z12.31 Encounter for screening mammogram for malignant neoplasm of breast (principal); R92.333 Mammographic heterogeneous density, bilateral breasts
CPT/HCPCS: 77063; 77067

== ENCOUNTER → 2024-04-21 11:18 | Outpatient (CLI) | payer MEDICARE, OTHER, SELFPAY ==
--- NOTE | 2024-04-21 11:21 | DI.RAD.S_ITS ---
PROCEDURE: XR THORACIC SPINE 3V INDICATIONS: BACK PAIN TECHNIQUE: 3 views of the thoracic spine were acquired. COMPARISON: None. FINDINGS: Thoracic spine curvature and alignment: Slight rightward curve appreciated. Bones: There are no osseous abnormalities. Disc spaces: Moderate degenerative disc disease is seen throughout the thoracic spine. Soft tissues: No soft tissue swelling, calcification or mass. IMPRESSION: Moderate degenerative disc disease. Dictated by: Efrain Vaughn M.D. on 04/24/2024 at 6:45 Approved by: Efrain Vaughn M.D. on 04/24/2024 at 6:47
== END ==
PROVIDERS: Family Provider Family Medicine; PCP Internal Medicine; Referring Provider Internal Medicine; Visit Provider Internal Medicine
DX: M51.34 Other intervertebral disc degeneration, thoracic region (principal); M54.9 Dorsalgia, unspecified
CPT/HCPCS: 72072

== ENCOUNTER → 2024-06-28 | Outpatient (CLI) | payer MEDICARE, OTHER, SELFPAY ==
--- NOTE | 2024-06-28 11:07 | DI.MRI.S_ITS ---
PROCEDURE: MR CERVICAL SPINE WO CON INDICATIONS: NECK PAIN / OCCIPITAL NEURALGIA OF RIGHT SIDE TECHNIQUE: Noncontrast sagittal T1 spin echo and T2 fast spin echo, sagittal STIR, foraminal oblique sagittal T2 fast spin echo, and axial gradient echo or T2 fast spin echo through the cervical spine. COMPARISON: [facility], MR, MR CERVICAL SPINE WO CON, 04/11/2021, 8:41. FINDINGS: Image quality: Excellent. Alignment and Curvature: There is normal bony alignment. Bone Marrow: Mild degenerative endplate changes. Marrow demonstrates normal overall signal. Spinal Cord: Visualized spinal cord has normal size and signal. No cerebellar tonsillar herniation. Paraspinous Soft Tissues: No paravertebral masses. Prevertebral soft tissues are normal in thickness. C2-C3: Disc desiccation and mild disc bulge. Facet arthropathy. Mild central canal stenosis. Mild bilateral neural foraminal stenosis. Stable compared to prior. C3-C4: Disc desiccation and mild posterior disc osteophyte complex. Mild facet and uncovertebral arthropathy. Mild central canal stenosis. Moderate neural foraminal stenosis is progressed from prior. C4-C5: Disc desiccation and mild posterior disc osteophyte complex. Facet and uncovertebral arthropathy. Mild central canal stenosis. Moderate right neural foraminal stenosis and mild left neural foraminal stenosis are stable. C5-C6: Disc desiccation and mild posterior disc osteophyte complex. Mild central canal stenosis. Facet and uncovertebral arthropathy. Mild bilateral neural foraminal stenosis. C6-C7: Disc desiccation and mild posterior disc osteophyte complex. Mild facet and uncovertebral arthropathy. Mild central canal and mild bilateral neural foraminal stenosis is stable. C7-T1: No significant central canal or neural foraminal stenosis. IMPRESSION: 1. Multilevel degenerative changes of the cervical spine as described above. 2. Mild multilevel central canal stenosis is stable. 3. Progression of moderate bilateral neural foraminal stenosis at C3-C4. Otherwise, multilevel mild neural foraminal stenosis is stable. Dictated by: Demian Walters M.D. on 06/28/2024 at 20:38 Approved by: Demian Walters M.D. on 06/28/2024 at 20:46
== END ==
LOC: MRI 10:36
PROVIDERS: Family Provider Family Medicine; PCP Family Medicine; Referring Provider Family Medicine; Visit Provider Family Medicine
DX: M47.812 Spondylosis without myelopathy or radiculopathy, cervical region (principal); M48.02 Spinal stenosis, cervical region; M54.81 Occipital neuralgia; M54.2 Cervicalgia
CPT/HCPCS: 72141

== ENCOUNTER 2024-07-02 09:31 | Emergency (ER) | payer MEDICARE, OTHER, SELFPAY ==
[2024-07-02 09:37] VITALS: O2SAT 97
[2024-07-02 09:38] VITALS: BP 195/85; PULSE 79; O2SAT 97
[2024-07-02 09:42] VITALS: BP 195/85; PULSE 77; RESP 18; TEMP 36.9; O2SAT 100; BMI 29.2
--- NOTE | 2024-07-02 09:50 | DI.CT.S_ITS ---
PROCEDURE: CT CERVICAL SPINE WO CON INDICATIONS: fell hit head on ice, no thinners, + hematoma TECHNIQUE: Noncontrast 3 mm thick sections acquired from the skull base to the T4 level. Sagittal and coronal reformats were then constructed. For radiation dose reduction, the following was used: automated exposure control, adjustment of mA and/or kV according to patient size. COMPARISON: None. FINDINGS: Image quality: Excellent. Bones: No fractures or dislocations. Visualized superior ribs are intact. Mild degenerative changes Soft tissues: Prevertebral soft tissues are normal in thickness. No paravertebral hematomas. No apical pneumothoraces. IMPRESSION: No displaced fracture or traumatic subluxation. Approved by: Moreno López M.D. on 07/02/2024 at 10:08
--- NOTE | 2024-07-02 09:50 | DI.CT.S_ITS ---
PROCEDURE: CT HEAD/BRAIN WO CON INDICATIONS: fell hit head on ice, no thinners, + hematoma TECHNIQUE: Noncontrast 4.5 mm thick angled axial sections acquired from the foramen magnum to the vertex, with coronal and sagittal reformats. For radiation dose reduction, the following was used: automated exposure control, adjustment of mA and/or kV according to patient size. COMPARISON: [facility], CT, CT HEAD/BRAIN WO CON, 02/11/2020, 9:26. FINDINGS: Image quality: Diagnostic. CSF spaces: Basal cisterns are patent. No extra-axial fluid collections. Ventricles are normal in size and shape. Brain: No midline shift. No intracranial masses or hemorrhage. Flynn-white matter interface is normal. Skull and face: Calvarium and visualized facial bones are intact, without suspicious lesions. Sinuses: Visualized sinuses and mastoids are clear. IMPRESSION: No acute intracranial pathology. Approved by: Moreno López M.D. on 07/02/2024 at 10:12
[2024-07-02 10:00] VITALS: PULSE 65; O2SAT 97
--- NOTE | 2024-07-02 10:46 | PC.NURSE ---
Ambulated to bathroom. States that she is dizzy and feels wobbly. Requires 1 person assist for stability.
--- NOTE | 2024-07-02 11:45 | ED.HEATRA ---
HPI - Head Injury General Chief complaint: Head Injury Stated complaint: fell and hit head 1 hr ago Time Seen by Provider: 07/02/24 09:49 Source: patient, RN notes reviewed and old records reviewed Mode of arrival: Ambulatory Limitations: no limitations History of Present Illness HPI Narrative: 74-year-old female history of dyslipidemia, persistent neuralgias after having remote history of cervical fracture had ground level fall when she slipped on ice hitting her head. Denies loss of consciousness no C-spine tenderness no anticoagulants but does have a headache, dizziness and nausea and hematoma on posterior scalp. No bleeding or lacerations that she notes. Denies any anticoagulant. Patient notes headaches little bit better. She does have some photophobia. She had nausea but only has a very mild nausea currently. No vomiting. States dizziness is improved. She did ambulate to the bathroom earlier and states did hang onto her but otherwise felt like it went okay denies any midline neck pain, no back pain. No chest pain or shortness of breath. No new numbness tingling or weakness of extremities. States she was noticed a little bit of bruising on her right hip but denies any bony tenderness. Patient states she did not have any loss of consciousness was then discouraged she states she laid on the ground for short period of time before she got herself up off the ground. She has not had anything for headache. States she takes several medications including muscle relaxers gabapentin for chronic neuralgias from a remote cervical fracture. Has history of allergy to sulfa with responsive nausea. No tobacco occasional alcohol, no recreational drugs. He is accompanied by her significant other. Related Data Home Medications Medication Instructions Recorded Confirmed omega-3 fatty acids 1,000 mg 1,000 mg PO DAILY 03/01/20 12/11/22 capsule (Fish Oil Concentrate) acetaminophen 650 mg 1,300 mg PO BEDTIME 02/11/21 12/11/22 tablet,extended release (Tylenol 8 Hour) cetirizine 10 mg tablet (All Day 10 mg PO DAILY 02/11/21 12/11/22 Allergy (cetirizine)) cholecalciferol (vitamin D3) 1,250 1,250 mcg PO DAILY 02/11/21 12/11/22 mcg (50,000 unit) capsule fluticasone propionate 50 1 spray intranasal BID 02/11/21 12/11/22 mcg/actuation nasal spray,suspension gabapentin 300 mg capsule 600 - 900 mg PO BID 02/11/21 12/11/22 melatonin 10 mg capsule 10 mg PO BEDTIME 02/11/21 12/11/22 omeprazole PO BID 02/11/21 02/11/21 oxcarbazepine 300 mg tablet 300 - 600 mg PO BID 02/11/21 12/11/22 (Trileptal) methocarbamol 750 mg tablet 750 mg PO DAILY 12/11/22 12/11/22 omeprazole 20 mg capsule,delayed 20 mg PO DAILY 12/11/22 12/11/22 release rosuvastatin 10 mg tablet 10 mg PO DAILY 12/11/22 12/11/22 Previous Rx's Medication Instructions Recorded estradiol 0.01% (0.1 mg/gram) 1 g vaginal 2XW #42.5 grams 02/04/21 vaginal cream (Estrace) psyllium husk (with sugar) 3.4 1 tbsp PO BID #822 grams 12/11/22 gram/7 gram oral powder (Fiber (psyllium husk-sugar)) ondansetron 4 mg disintegrating 4 mg PO Q6H PRN nausea and 07/02/24 tablet vomiting #10 tabs Allergies Allergy/AdvReac Type Severity Reaction Status Date / Time Sulfonamide Allergy Mild Nausea Uncoded 12/11/22 07:35 Review of Systems Review of Systems ROS Unobtainable: All systems reviewed & are unremarkable except as noted in HPI and below Patient History Medical History Postmenopausal atrophic vaginitis Asthma Arthritis Postmenopausal atrophic vaginitis Surgical History Hx of appendectomy Social History household members: spouse Smoking Status: Never smoker alcohol intake: current Smoking Status: Never smoker alcohol intake frequency: a few times a month Exam Narrative Exam Narrative: GEN: Patient appears in sdfy-pl-vszixkko distress. HEAD: Patient has posterior scalp hematoma with a little bit of abrasion, no laceration no bleeding, no raccoon/Altamirano sign. NECK: Nontender, painless range of motion, trachea midline Negative Nexus criteria, no midline line tenderness, distracting injury, altered mental status, neuro deficit, recent EtOH. EYES: PERRLA, EOMI, mild photophobia ENT: External inspection normal, trachea is midline, Nares are clear, no septal hematoma, no dental or oral injury, airway is normal and with normal occlusion, No bony tenderness RESP: Chest is nontender and has symmetric movement, no ecchymosis, breath sounds are normal no crackles, wheezes or rales CVS: Heart sounds are normal, no murmur noted, No JVD. ABG/GI: Nontender, soft, normal bowel sounds, no distention, no organomegaly, pelvic rock is negative NEURO: Oriented AOx3, neuro is grossly intact, sensation and motor is normal all 4 extremities moving, cranial nerves II through XII are intact, GCS is 15 PSYCH: Normal mood and affect SKIN: Intact, warm and dry, no crepitus and without decubitus BACK: No CVA tenderness, no vertebral tenderness, no step-off's, no crepitus EXT: Atraumatic, hips are nontender, normal range of motion, no weakness bilateral upper and lower extremities. Initial Vital Signs Initial Vital Signs: Vital Signs Pulse Oximetry 97 07/02/24 09:[address] [place] [address] Head Rule Age <16 years old: No Patient on blood thinners: No Seizure after injury: No Exclusion: Patient NOT Excluded, Proceed to next steps Age greater or equal to 65 years: Yes GCS Preeti coma scale eye opening: Spontaneous Preeti coma scale verbal response: Orientated [place] coma scale motor response: Obey commands [place] coma scale total score: 15 Course Orders Ordered: ED Orders 07/02/24 09:50 CT cervical spine wo con Stat CT head/brain wo con Stat Discontinued Medications Acetaminophen (Acetaminophen 325 Mg Tablet) 975 mg PO NOW ONE Stop: 07/02/24 12:05 Last Admin: 07/02/24 12:16 Dose: 975 mg Documented By: MORGAN Ondansetron HCl (Ondansetron 4 Mg Odt) 4 mg SL NOW ONE Stop: 07/02/24 12:05 Last Admin: 07/02/24 12:16 Dose: 4 mg Documented By: MORGAN Vital Signs Vital signs: Vital Signs - 8 hr 07/02/24 12:20 Temperature 98 F Pulse Rate 70 Respiratory Rate 20 Blood Pressure 152/69 H Pulse Oximetry 100 Oxygen Delivery Method Room Air MDM - Head Injury Imaging Data CT scan - head: Radiologist's Impression: Close Head CT (Signed) Moreno López - 07/02/[address] (Signed) Moreno López - 07/02/24 Cervical Spine MRI (Signed) Demian Walters - 06/28/24 Thoracic Spine X-Ray (Signed) BrendaurbanoEfrain andrews - 04/21/24 Mammogram Screening (Signed) Bob Kennedyry - 11/24/23 Mammogram Screening (Signed) Tejas Kennedy - 11/09/22 Cervical Spine X-Ray (Signed) Tom Braxton - 08/19/22 Bone Densitometry (Signed) Debbie Argueta - 08/14/22 Mammogram Screening (Signed) Michelle Cantor - 10/30/21 Hand MRI (Signed) Samuel Ortega - 09/18/21 Hand X-Ray (Signed) ArguetaDebbie santacruz - 08/06/21 Chest X-Ray (Signed) James Jean - 07/01/21 Cervical Spine MRI (Signed) Karuna Willis - 04/11/21 Lumbar Spine MRI (Signed) Makayla Orr - 03/13/21 Lumbar Spine X-Ray (Signed) Makayla Orr - 03/10/21 Mammogram Screening (Signed) Sanchez Meier - 10/01/20 Foot X-Ray (Signed) Debbie Argueta - 07/23/20 Echocardiogram Ultrasound (Signed) Albert Ortiz - 02/12/[address] (Signed) Magdaleno Zaragoza - 02/11/20 Chest CTA (Signed) Michelle Cantor - 02/01/20 Chest X-Ray (Signed) Sanchez Meier - 01/29/[address] (Signed) Rikki Malloy - 01/01/20 MRI Orbit/Face/Neck/IAC (Signed) Ramses Bailey - 03/30/[address] [address] [address] Scan Report Signed Patient: Melissa Ivan MR#: [id number] : 1950 Acct:[id number] Age/Sex: 74 / F Date of Service: 07/02/24 Loc: ED Accession Number: [id number] Procedure: CT head/brain wo con Ordering Provider: Katheryn Cormier D.O. PROCEDURE: CT HEAD/BRAIN WO CON INDICATIONS: fell hit head on ice, no thinners, + hematoma TECHNIQUE: Noncontrast 4.5 mm thick angled axial sections acquired from the foramen magnum to the vertex, with coronal and sagittal reformats. For radiation dose reduction, the following was used: automated exposure control, adjustment of mA and/or kV according to patient size. COMPARISON: [facility], CT, CT HEAD/BRAIN WO CON, 02/11/2020, 9:26. FINDINGS: Image quality: Diagnostic. CSF spaces: Basal cisterns are patent. No extra-axial fluid collections. Ventricles are normal in size and shape. Brain: No midline shift. No intracranial masses or hemorrhage. Flynn-white matter interface is normal. Skull and face: Calvarium and visualized facial bones are intact, without suspicious lesions. Sinuses: Visualized sinuses and mastoids are clear. IMPRESSION: No acute intracranial pathology. Approved by: Moreno López M.D. on 07/02/2024 at 10:12 CT - cervical spine: Radiologist's Impression: Close Head CT (Signed) Moreno López - 07/02/[address] (Signed) Moreno López - 07/02/24 Cervical Spine MRI (Signed) Demian Walters - 06/28/24 Thoracic Spine X-Ray (Signed) Efrain Vaughn - 04/21/24 Mammogram Screening (Signed) Tejas Kennedy - 11/24/23 Mammogram Screening (Signed) Tejas Kennedy - 11/09/22 Cervical Spine X-Ray (Signed) Tom Braxton - 08/19/22 Bone Densitometry (Signed) Debbie Argueta - 08/14/22 Mammogram Screening (Signed) Michelle Cantor - 10/30/21 Hand MRI (Signed) Samuel Ortega - 09/18/21 Hand X-Ray (Signed) Debbie Argueta - 08/06/21 Chest X-Ray (Signed) James Jean - 07/01/21 Cervical Spine MRI (Signed) Karuna Willis - 04/11/21 Lumbar Spine MRI (Signed) Makayla Orr - 03/13/21 Lumbar Spine X-Ray (Signed) Makayla Orr - 03/10/21 Mammogram Screening (Signed) Sanchez Meier - 10/01/20 Foot X-Ray (Signed) Debbie Argueta - 07/23/20 Echocardiogram Ultrasound (Signed) Albert Ortiz - 02/12/[address] (Signed) Ludwin Zaragozaic - 02/11/20 Chest CTA (Signed) Michelle Cantor - 02/01/20 Chest X-Ray (Signed) Sanchez Meier - 01/29/[address] (Signed) GamaRikki - 01/01/20 MRI Orbit/Face/Neck/IAC (Signed) Ramses Bailey - 03/30/19 [address] [address] CT Scan Report Signed Patient: Melissa Ivan MR#: [id number] : 1950 Acct:[id number] Age/Sex: 74 / F Date of Service: 07/02/24 Loc: ED Accession Number: [id number] Procedure: CT cervical spine wo con Ordering Provider: Katheryn Cormier D.O. PROCEDURE: CT CERVICAL SPINE WO CON INDICATIONS: fell hit head on ice, no thinners, + hematoma TECHNIQUE: Noncontrast 3 mm thick sections acquired from the skull base to the T4 level. Sagittal and coronal reformats were then constructed. For radiation dose reduction, the following was used: automated exposure control, adjustment of mA and/or kV according to patient size. COMPARISON: None. FINDINGS: Image quality: Excellent. Bones: No fractures or dislocations. Visualized superior ribs are intact. Mild degenerative changes Soft tissues: Prevertebral soft tissues are normal in thickness. No paravertebral hematomas. No apical pneumothoraces. IMPRESSION: No displaced fracture or traumatic subluxation. Approved by: Moreno López M.D. on 07/02/2024 at 10:08 [facility] Narrative Medical decision making narrative: 74-year-old female slip fall with hitting her head, patient does have a hematoma based on age has headache, dizziness she was not anticoagulated but felt appropriate for imaging. Also has quite a bit of photophobia, no other acute neurologic changes. Patient slightly hypertensive but otherwise appropriate vitals neurologic exam. Head CT and CT cervical spine showed no acute changes. Suspect patient does have a concussion has had some persistent photophobia and headache does have a scalp hematoma with a little bit of abrasion. She does note her tetanus is up-to-date in the past 5 years. We will give a dose of Tylenol was also given a dose of ondansetron here in the department. We will give a short course of ondansetron for home discussed return precautions. Head CT shows no acute change CT cervical spine shows no displaced fracture or traumatic subluxation. No apical pneumothoraces. Discharge Plan Departure Patient Disposition: Home Clinical Impression: Hematoma of scalp, Fall Concussion Qualifiers: Encounter type: initial encounter Instructions: Concussion Activity Restrictions/Additional Instructions: Follow up with your physician in the next week if you are not having improvement of your symptoms. Your imaging does not show any bleed, you do have a hematoma on your posterior scalp little bit of abrasion but I do believe you have a concussion. Increase your activity as tolerated, if you are having symptoms with activity return to your most comfortable level and then attempt in the next 24 hours. You can take acetaminophen up to a 1000 mg every 6 hours and/or ibuprofen up to 600 mg every 6 hours as needed You can take Zofran 1 tablet every 6 hours as needed for nausea. Prescription sent to [facility] in [place]. Please return for rapidly worsening headaches, any vomiting, any new numbness, tingling or weakness, difficulty with vision or double vision, difficulty with speech, confusion or changes in mentation, difficulty or new changes to ambulation or other new or concerning changes. Prescriptions: New ondansetron 4 mg tablet,disintegrating 4 mg PO Q6H PRN (Reason: nausea and vomiting) Qty: 10 0RF No Action omega-3 fatty acids [Fish Oil Concentrate] 1,000 mg capsule 1,000 mg PO DAILY gabapentin 300 mg capsule 600 - 900 mg PO BID Patient Comments: 2 capsules in am and 3 at night oxcarbazepine [Trileptal] 300 mg tablet 300 - 600 mg PO BID Patient Comments: 1 tablet in am and 2 tablets at night cholecalciferol (vitamin D3) 1,250 mcg (50,000 unit) capsule 1,250 mcg PO DAILY methocarbamol 750 mg tablet 750 mg PO DAILY Patient Comments: TAKE 1/2 TABLET BY MOUTH NIGHTLY AT BEDTIME FOR MUSCLE RELAXANT omeprazole 20 mg capsule,delayed release(DR/EC) 20 mg PO DAILY Patient Comments: TAKE ONE CAPSULE BY MOUTH TWICE DAILY before meals rosuvastatin 10 mg tablet 10 mg PO DAILY Patient Comments: TAKE ONE TABLET BY MOUTH ONE TIME DAILY Fiber (psyllium husk-sugar) 3.4 gram/7 gram powder 1 tbsp PO BID Qty: 822 0RF Rx Instructions: Take with a large glass of water. You may lose weight if you take it before meals. estradiol [Estrace] 0.01 % (0.1 mg/gram) cream 1 g VAG 2XW Qty: 42.5 12RF Rx Instructions: Please provide patient with compounded Estriol 0.1% acetaminophen [Tylenol 8 Hour] 650 mg tablet extended release 1,300 mg PO BEDTIME cetirizine [All Day Allergy (cetirizine)] 10 mg tablet 10 mg PO DAILY fluticasone propionate 50 mcg/actuation spray,suspension 1 spray NASAL BID Rx Instructions: administer into each nostril melatonin 10 mg capsule 10 mg PO BEDTIME omeprazole PO BID Referrals: Brooke Williamson MD [Primary Care Provider] - Stand Alone Forms: Patient Portal/API/Survey
[2024-07-02] MEDS: ACETAMINOPHEN 325 MG TABLET 975 MG PO (12:16)
[2024-07-02] MEDS: ONDANSETRON 4 MG ODT SL (12:16)
[2024-07-02 12:20] VITALS: BP 152/69; PULSE 70; RESP 20; TEMP 36.6; O2SAT 100
== END 2024-07-02 12:22 | disposition home or self-care (01) ==
PROVIDERS: Emergency Provider Emergency Medicine; Family Provider Family Medicine; PCP Family Medicine
DX: S06.0X0A Concussion without loss of consciousness, initial encounter (principal); W00.0XXA Fall on same level due to ice and snow, initial encounter; E78.5 Hyperlipidemia, unspecified; S00.03XA Contusion of scalp, initial encounter; R51.9 Headache, unspecified; R42 Dizziness and giddiness; Z88.2 Allergy status to sulfonamides
CPT/HCPCS: 70450; 72125; 99283; 99284

== ENCOUNTER → 2024-11-29 14:36 | Outpatient (CLI) | payer MEDICARE, OTHER, SELFPAY ==
--- NOTE | 2024-11-29 14:38 | DI.MG.S_ITS ---
MM screening mammo BI: 11/29/2024. BI-RADS: 1 CLINICAL: 74-year old female for bilateral screening mammogram. Tyrer-Cuzick lifetime risk of 4.5%. No personal or first-degree family history of breast cancer. PRIOR EXAMS 11/24/2023, 11/09/2022, 10/30/2021, MAMMOGRAPHY TECHNIQUE: 2D and 3D (tomosynthesis) digital mammographic views obtained, with additional images as needed for full coverage. Current study was also evaluated with a Computer Aided Detection (CAD) system. DENSITY C. The breasts are heterogeneously dense, which may obscure small masses. MAMMOGRAPHY FINDINGS Bilateral: No suspicious mass, asymmetry, microcalcification, or other abnormality seen. No significant change from comparison. IMPRESSION: * No evidence of malignancy. RECOMMENDATIONS Bilateral * Annual screening mammography. OVERALL ASSESSMENT CATEGORY BI-RADS-1: Negative. The [employer] recommends annual screening mammography beginning at age 40 for women with average risk of breast cancer. ELECTRONICALLY SIGNED: Samuel Ortega M.D. on 11/30/2024 at 10:56:24 AM PT Interpreting Station ID: [id number]
--- NOTE | 2024-11-29 14:38 | DI.RAD.S_ITS ---
PROCEDURE: XR DEXA AXIAL SKELETON INDICATIONS: screenings COMPARISON: [facility], , XR DEXA AXIAL SKELETON, 08/14/2022, 9:55. [facility], CR, DEXA AXIAL SKELETON, 10/21/2015, 13:38. FINDINGS: Lumbar Spine: L1-L4. Bone mineral density 0.887 g/cm2, T score -1.5. Left Femoral Neck: Bone mineral density 0.571 g/cm2, T score -2.5. Left Hip: Bone mineral density 0.752 g/cm2, T score -1.6. Fracture Risk Calculation (when applicable): 10-year fracture risk of a major osteoporotic fracture 16 percent and of a hip fracture 5.0 percent. (T score greater or equal to -1.0 to: NORMAL) (T score from -1.1 to -2.4: OSTEOPENIA) (T score less than or equal to -2.5: OSTEOPOROSIS) IMPRESSION: Osteoporosis. Follow-up guidelines as follows: Osteoporosis: Consider a repeat DEXA and Vertebral Fracture Assessment (VFA) exam in 2 years or sooner if medically necessary, to reassess this patient's status. Osteopenia: Consider a repeat DEXA in 2-3 years to reassess this patient's status, or if there is a new clinical indication. Normal: Consider a repeat DEXA in 5 years or sooner, or if there is a new clinical indication. All treatment decisions require clinical judgment and consideration of individual patient factors, including patient preferences, comorbidities, previous drug use, risk factors not captured in the FRAX model (e.g., frailty, falls, vitamin D deficiency, increased bone turnover, interval significant decline in bone density ) and possible under- or over-estimation of fracture risk by FRAX. In addition, the NOF Guide recommends that FDA-approved medical therapies be considered in postmenopausal women and men age >= 50 years with a: * Hip or vertebral (clinical or morphometric) fracture * T-score of <=-2.5 at the spine or hip * Ten-year fracture probability by FRAX of >= 3% for hip fracture or >=20% for major osteoporotic fracture. Dictated by: Tom Braxton M.D. on 11/30/2024 at 13:46 Approved by: Tom Braxton M.D. on 11/30/2024 at 13:47
== END ==
LOC: MAMMO 14:37
PROVIDERS: Family Provider Family Medicine; PCP Family Medicine; Referring Provider Family Medicine; Visit Provider Family Medicine
DX: Z12.31 Encounter for screening mammogram for malignant neoplasm of breast (principal); M81.0 Age-related osteoporosis without current pathological fracture; M85.89 Other specified disorders of bone density and structure, multiple sites; R92.333 Mammographic heterogeneous density, bilateral breasts
CPT/HCPCS: 77063; 77067; 77080

== ENCOUNTER → 2025-03-16 07:54 | Outpatient (CLI) | payer MEDICARE, OTHER, SELFPAY ==
--- NOTE | 2025-03-16 07:55 | DI.MRI.S_ITS ---
PROCEDURE: MR HEAD/BRAIN WO CON INDICATIONS: neck pain, headaches TECHNIQUE: Non-contrast axial T1 spin echo, axial T2 fast spin echo, sagittal and axial FLAIR, coronal T2 fast spin echo, axial gradient echo, axial diffusion and ADC through the brain. COMPARISON: None. FINDINGS: Image quality: Excellent. CSF spaces: Ventricles appear symmetric in size and shape. Basal cisterns are patent. No extra-axial fluid collections. Brain: No acute intracranial hemorrhage or mass effect. There is cerebral volume loss for age. There are minimal periventricular and deep white matter chronic small vessel ischemic changes. Brainstem appears normal. Diffusion-weighted images show no acute infarct. No chronic ischemic insults. Normal intravascular flow voids are present. Skull and face: Calvarial bone marrow is normal in signal. Orbits are normal. Sinuses: Sinuses and mastoids are clear. IMPRESSION: 1. No acute intracranial abnormality. No acute hemorrhage or recent infarct. 2. Ayuh-zi-xfgfilky generalized parenchymal volume loss. 3. Minimal chronic microvascular ischemic changes. Approved by: Samuel Ortega M.D. on 03/16/2025 at 12:41
== END ==
LOC: MRI 07:55
PROVIDERS: Family Provider Family Medicine; PCP Family Medicine; Referring Provider Family Medicine; Visit Provider Family Medicine
DX: M54.2 Cervicalgia (principal); R51.9 Headache, unspecified; Z98.890 Other specified postprocedural states
CPT/HCPCS: 70551